=== PATIENT | male | born 1960 | race American Indian/Alaskan Native ===

== ENCOUNTER 2018-04-04 13:46 | Emergency (ER) | payer OTHER ==
[~2018-04-04] VITALS: Ht 177.8 cm; Wt 77.1 kg
[~2018-04-04 13:46] MED LIST: CVS DISPOSABLE399 ML; Colace100 MG PO; DIAZ5 PO; IBUPROFEN200 MG PO; KETO10 PO; LIDO5TP TD; Levaquin500 MG PO; Milk Of Ma400 MG/5 M; OXYC5 PO; TRAZ50 PO; [UNRECOGNIZED DRUG - REMARK]
== END 2018-04-04 15:34 | disposition home or self-care (01) ==
LOC: ER 13:46
DX: S06.0X0A Concussion without loss of consciousness, initial encounter (principal); S01.112A Laceration without foreign body of left eyelid and periocular area, initial encounter; F17.200 Nicotine dependence, unspecified, uncomplicated; W50.0XXA Accidental hit or strike by another person, initial encounter
CPT/HCPCS: 12011; 99283

== ENCOUNTER 2018-04-05 12:07 | Emergency (ER) | payer OTHER ==
[~2018-04-05] VITALS: Ht 177.8 cm; Wt 77.1 kg
== END 2018-04-05 13:58 | disposition home or self-care (01) ==
LOC: ER 12:07
DX: S00.12XA Contusion of left eyelid and periocular area, initial encounter (principal); S00.432A Contusion of left ear, initial encounter; S00.81XA Abrasion of other part of head, initial encounter; F17.200 Nicotine dependence, unspecified, uncomplicated; Y04.2XXA Assault by strike against or bumped into by another person, initial encounter
CPT/HCPCS: 70450; 99283-25

== ENCOUNTER 2019-02-13 17:33 | Emergency (ER) | payer OTHER ==
[~2019-02-13] VITALS: Ht 175.3 cm; Wt 70.3 kg
[~2019-02-13 17:33] MED LIST changes: +ERGO400 PO; +LISI20 PO
[2019-02-13] MEDS ORDERED: Lisinopril2.5 MG PO (17:52)
[2019-02-13] MEDS ORDERED: TRAZ100 PO (17:52)
[2019-02-13] MEDS ORDERED: BUPR150T2 PO (17:52)
[2019-02-13] MEDS ORDERED: Robaxin500 MG PO (19:05)
== END 2019-02-13 19:17 | disposition home or self-care (01) ==
LOC: ER 17:33
DX: M62.830 Muscle spasm of back (principal); Z79.899 Other long term (current) drug therapy; I10 Essential (primary) hypertension; F17.210 Nicotine dependence, cigarettes, uncomplicated
CPT/HCPCS: 20552; 96372-59; 99283-25; J1885

== ENCOUNTER 2021-02-24 06:21 | Emergency (ER) | payer OTHER ==
[~2021-02-24] VITALS: Ht 172.7 cm; Wt 79.4 kg
[~2021-02-24 06:21] MED LIST changes: +BUPR150T2 PO; +Lisinopril2.5 MG PO; +Robaxin500 MG PO; +TRAZ100 PO
[2021-02-24] MEDS ORDERED: SULTRIDS PO (08:28)
[2021-03-10] MEDS ORDERED: IBUP800 PO (17:57)
[2021-03-10] MEDS ORDERED: CEPH500 PO (17:57)
== END 2021-02-24 08:41 | disposition home or self-care (01) ==
LOC: ER 06:21
DX: L73.9 Follicular disorder, unspecified (principal); R60.0 Localized edema; I10 Essential (primary) hypertension; F17.210 Nicotine dependence, cigarettes, uncomplicated
CPT/HCPCS: 93971; 99283-25

== ENCOUNTER 2021-04-21 01:00 | Emergency (ER) | payer OTHER ==
[~2021-04-21] VITALS: Ht 175.3 cm; Wt 81.7 kg
[~2021-04-21 01:00] MED LIST changes: +CEPH500 PO; +IBUP800 PO; +SULTRIDS PO
[2021-04-21 01:19] LABS: BASOPHILS ABSOLUTE AUTO 0.04 K/mm3 (0.00-0.23); BASOPHILS PERCENT AUTO 1 % (0-2); EOSINOPHILS ABSOLUTE AUTO 0.09 K/mm3 (0.00-0.68); EOSINOPHILS PERCENT AUTO 1 % (0-6); Hematocrit 37.6 % (37.0-53.0); Hemoglobin 13.2 g/dL (13.5-17.5); IMMATURE GRAN PERCENT AUTO 1 % (0-1); LYMPHOCYTES ABSOLUTE AUTO 2.34 K/mm3 (0.84-5.20); LYMPHOCYTES PERCENT AUTO 31 % (21-46); MONOCYTES ABSOLUTE AUTO 0.56 K/mm3 (0.16-1.47); MONOCYTES PERCENT AUTO 7 % (4-13); Mean Corpuscular HGB 32.7 pg (26.0-34.0); Mean Corpuscular HGB Conc 35.1 g/dL (31.5-36.5); Mean Corpuscular Volume 93 fL (80-100); Mean Platelet Volume 8.6 fL (9.1-12.4); NEUTROPHILS ABSOLUTE AUTO 4.51 K/mm3 (1.96-9.15); NEUTROPHILS PERCENT AUTO 59 % (41-73); Platelet Count 279 K/mm3 (150-400); RDW Coefficient Variation 12.5 % (11.7-14.2); RDW Standard Deviation 42.9 fL (35.1-46.3); Red Blood Cell Count 4.04 M/mm3 (4.30-5.90); White Blood Cell Count 7.64 K/mm3 (4.00-11.30)
[2021-04-21 01:37] LABS: Ethanol (Alcohol), Blood, Med <3 mg/dL
[2021-04-21 01:38] LABS: Alanine Aminotransfer (ALT/SGP 27 U/L (12-78); Albumin, Blood 3.5 g/dL (3.4-5.0); Albumin/Globulin Ratio 0.9 (0.8-1.8); Alk Phos 89 U/L (50-136); Anion Gap 5 mmol/L (6-16); Aspartate Aminotrans (AST/SGOT 19 U/L (12-37); Bilirubin, Total 0.5 mg/dL (0.1-1.0); Blood Urea Nitrogen 17 mg/dL (8-24); Bun/Creatinine Ratio 16.7 (12.0-20.0); CO2, Blood 29 mmol/L (21-32); Calcium, Blood 9.2 mg/dL (8.5-10.1); Chloride, Blood 109 mmol/L (98-108); Creatinine, Blood 1.02 mg/dL (0.60-1.20); Globulin, Blood 3.8 g/dL (2.2-4.0); Glomerular Filtration Rate >60 (60-); Glucose, Blood 98 mg/dL (70-99); Potassium, Blood 3.8 mmol/L (3.5-5.5); Sodium, Blood 143 mmol/L (136-145); Total Protein, Blood 7.3 g/dL (6.4-8.2)
[2021-04-21 01:44] LABS: International Normalized Ratio 0.93; Prothrombin Time Results 10.1 Sec (9.7-11.5)
[2021-04-21 02:22] LABS: Troponin I <0.015 ng/mL (0.000-0.040)
[2021-04-21 02:28] LABS: Source, Urine Clean Catch
[2021-04-21 02:32] LABS: Appearance, Urine Clear (Clear); Bilirubin, Urine Neg (Neg); Blood, Urine 2+ (Neg); Color, Urine Yellow (P-Yellow); Glucose Qualitative, Urine Neg (Neg); Ketones, Urine 1+ (Neg); Leukocyte Esterase, Urine 1+ (Neg); Nitrite, Urine Neg (Neg); Protein, Urine Neg (Neg); Urobilinogen, Urine NORM (Normal)
[2021-04-21 02:38] LABS: Bacteria Mod /hpf; Red Blood Cells, Urine 0-2 /hpf (0-2); Squamous Epithelial Cells Not Seen /hpf (Few)
[2021-04-21 02:42] LABS: U Amphetamine Screen DETECTED; U Barbituate Screen Not Detected; U Benzodiazapine Screen Not Detected; U Buprenorphine Screen Not Detected; U Cannabinoids Screen Not Detected; U Cocaine Screen Not Detected; U Methadone Screen Not Detected; U Methamphetamine Screen DETECTED; U Opiates Screen Not Detected; U Oxycodone Screen Not Detected; U Phencyclidine Screen Not Detected; U Propoxyphene Screen Not Detected
[2021-04-21] MEDS ORDERED: Percocet 5-3251 EACH PO (03:09)
== END 2021-04-21 04:15 | disposition home or self-care (01) ==
LOC: ER 01:00 → SURS 01:13 → ER 01:13
PROVIDERS: Emergency Medicine
DX: S22.22XA Fracture of body of sternum, initial encounter for closed fracture (principal); V89.0XXA Person injured in unspecified motor-vehicle accident, nontraffic, initial encounter; F15.10 Other stimulant abuse, uncomplicated; I10 Essential (primary) hypertension; F17.210 Nicotine dependence, cigarettes, uncomplicated; M47.892 Other spondylosis, cervical region; K50.00 Crohn's disease of small intestine without complications
CPT/HCPCS: 36415; 70450; 71045; 71260; 72125; 74177; 80053; 81001; 83605; 83690; 84484; 85025; 85610; 86850; 86900; 86901; 87086; 93005; 93010; 96374-59; 96375-59; 96376-59; 99285-25; A9270; G0480; J1170; J1885; J3010; L0160; Q9967

== ENCOUNTER 2021-05-02 10:46 | Inpatient (IN) | payer OTHER ==
[~2021-05-02] VITALS: Ht 175.3 cm; Wt 53.3 kg
[~2021-05-02 10:46] MED LIST changes: +Percocet 5-3251 EACH PO
[2021-05-02 12:15] LABS: BASOPHILS ABSOLUTE AUTO 0.01 K/mm3 (0.00-0.23); BASOPHILS PERCENT AUTO 0 % (0-2); EOSINOPHILS PERCENT AUTO 0 % (0-6); Hematocrit 37.1 % (37.0-53.0); Hemoglobin 12.9 g/dL (13.5-17.5); IMMATURE GRAN ABSOLUTE AUTO 0.07 K/mm3 (0.00-0.10); IMMATURE GRAN PERCENT AUTO 1 % (0-1); LYMPHOCYTES ABSOLUTE AUTO 1.07 K/mm3 (0.84-5.20); LYMPHOCYTES PERCENT AUTO 13 % (21-46); MONOCYTES ABSOLUTE AUTO 0.58 K/mm3 (0.16-1.47); MONOCYTES PERCENT AUTO 7 % (4-13); Mean Corpuscular HGB 32.7 pg (26.0-34.0); Mean Corpuscular HGB Conc 34.8 g/dL (31.5-36.5); Mean Corpuscular Volume 94 fL (80-100); Mean Platelet Volume 8.5 fL (9.1-12.4); NEUTROPHILS ABSOLUTE AUTO 6.52 K/mm3 (1.96-9.15); NEUTROPHILS PERCENT AUTO 79 % (41-73); Platelet Count 357 K/mm3 (150-400); RDW Coefficient Variation 12.5 % (11.7-14.2); RDW Standard Deviation 43.6 fL (35.1-46.3); Red Blood Cell Count 3.95 M/mm3 (4.30-5.90); White Blood Cell Count 8.25 K/mm3 (4.00-11.30)
[2021-05-02 12:37] LABS: Alanine Aminotransfer (ALT/SGP 38 U/L (12-78); Albumin, Blood 2.2 g/dL (3.4-5.0); Albumin/Globulin Ratio 0.5 (0.8-1.8); Alk Phos 122 U/L (50-136); Anion Gap 6 mmol/L (6-16); Aspartate Aminotrans (AST/SGOT 52 U/L (12-37); Bilirubin, Total 0.2 mg/dL (0.1-1.0); Blood Urea Nitrogen 18 mg/dL (8-24); Bun/Creatinine Ratio 20.4 (12.0-20.0); CO2, Blood 27 mmol/L (21-32); Calcium, Blood 8.1 mg/dL (8.5-10.1); Chloride, Blood 103 mmol/L (98-108); Creatinine, Blood 0.88 mg/dL (0.60-1.20); Globulin, Blood 4.4 g/dL (2.2-4.0); Glomerular Filtration Rate >60 (60-); Glucose, Blood 122 mg/dL (70-99); Potassium, Blood 4.3 mmol/L (3.5-5.5); Sodium, Blood 136 mmol/L (136-145); Total Protein, Blood 6.6 g/dL (6.4-8.2)
[2021-05-02 13:09] LABS: SARS-Cov-2 (COVID-19) PCR, MMC POSITIVE (NEGATIVE)
--- NOTE | 2021-05-02 18:57 | NUR ---
SHIFT SUMMARY PT ADMITTED TO UNIT FROM ED AT 1825 THIS SHIFT. PT AAOX4, ABLE TO MAKE NEEDS KNOWN. PLEASANT AND COOPERATIVE TO CARE. NO C/O PAIN OR ANY DISCOMFORT UPON ASSESSMENT. PT ON 10 LPM O2 VIA OXYMIZER SATTING 93% PT REPORTS SOB W/ EXERTION. LS DIM T/O. BED AT LOWEST POSITION. CALL LIGHT WITHIN REACH.
--- NOTE | 2021-05-03 04:19 | NUR ---
Shift Summary Pt admitted for covid 19+. Pt is a full code. The plan is to decrease pt 02 needs. Pt c/o some pain to chest due to coughing. Medicated with prn. No other changes throughout this shift.
[2021-05-03 05:47] LABS: BASOPHILS PERCENT AUTO 0 % (0-2); EOSINOPHILS PERCENT AUTO 0 % (0-6); Hematocrit 36.8 % (37.0-53.0); Hemoglobin 12.4 g/dL (13.5-17.5); IMMATURE GRAN ABSOLUTE AUTO 0.02 K/mm3 (0.00-0.10); IMMATURE GRAN PERCENT AUTO 0 % (0-1); LYMPHOCYTES ABSOLUTE AUTO 0.71 K/mm3 (0.84-5.20); LYMPHOCYTES PERCENT AUTO 12 % (21-46); MONOCYTES ABSOLUTE AUTO 0.26 K/mm3 (0.16-1.47); MONOCYTES PERCENT AUTO 4 % (4-13); Mean Corpuscular HGB Conc 33.7 g/dL (31.5-36.5); Mean Corpuscular Volume 95 fL (80-100); Mean Platelet Volume 8.9 fL (9.1-12.4); NEUTROPHILS ABSOLUTE AUTO 5.14 K/mm3 (1.96-9.15); NEUTROPHILS PERCENT AUTO 84 % (41-73); Platelet Count 401 K/mm3 (150-400); RDW Coefficient Variation 12.6 % (11.7-14.2); Red Blood Cell Count 3.87 M/mm3 (4.30-5.90); White Blood Cell Count 6.13 K/mm3 (4.00-11.30)
[2021-05-03 06:07] LABS: Alanine Aminotransfer (ALT/SGP 35 U/L (12-78); Albumin/Globulin Ratio 0.5 (0.8-1.8); Alk Phos 107 U/L (50-136); Anion Gap 5 mmol/L (6-16); Aspartate Aminotrans (AST/SGOT 38 U/L (12-37); Bilirubin, Total 0.3 mg/dL (0.1-1.0); Blood Urea Nitrogen 17 mg/dL (8-24); Bun/Creatinine Ratio 25.3 (12.0-20.0); CO2, Blood 25 mmol/L (21-32); Calcium, Blood 8.1 mg/dL (8.5-10.1); Chloride, Blood 108 mmol/L (98-108); Creatinine, Blood 0.67 mg/dL (0.60-1.20); Globulin, Blood 4.4 g/dL (2.2-4.0); Glomerular Filtration Rate >60 (60-); Glucose, Blood 131 mg/dL (70-99); Potassium, Blood 4.7 mmol/L (3.5-5.5); Sodium, Blood 138 mmol/L (136-145); Total Protein, Blood 6.4 g/dL (6.4-8.2)
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
--- NOTE | 2021-05-04 04:58 | NUR ---
SHIFT SUMMARY PT ADMITTED FOR COVID 19+. PT IS A FULL CODE. THE PLAN FOR THIS PTIS DECREASED DEMANND FOR . PT C/O PAIN MEDICATED ONCE DURING THIS SHIFT.AAOX4.
--- NOTE | 2021-05-04 16:14 | NUR ---
SHIFT SUMMARY PT IS AAOX4, ABLE TO MAKE NEEDS KNOWN, PLEASANT AND COOPERATIVE TO CARE. PT MEDICATED FOR PAIN PER EMAR. NO C/O CP OR N&V. PT CONTINUES ON 10LPM O2 VIA OXYMIZER PT SATS 90-93%. PT REQUIRES SBA TO BATHROOM. NO ACUTE CHANGES NOTED TO PT THIS SHIFT. BED AT LOWEST POSITION. CALL LIGHT WITHIN REACH.
--- NOTE | 2021-05-05 18:25 | NUR ---
Alert and oreinted x2 with anxiety. On 12 L oxyximezer with SP02 at 93%. Concerned about possible PE due to worsening SOB and dyspnia , D-diner was ordered and the result was 14.14 relatively high , however CT pulmonary angiogram was done and result shows no evidence of PE. Vital signs are stable. One person assist with ADLs. Continue to monitor for S/S of PNA.
--- NOTE | 2021-05-06 06:50 | NUR ---
PATIENT KEPT REMOVING OXIMIZER AND DESATING. HE IS ALSO SHALLOW MOUTH BREATHER. I PLACED IN ON A NON REBREATHER MASK AT 15 LITERS. HE IS CURRENTLY SATING IN LOW 90S. NO OTHER ACUTE CHANGES NOTED OVERNIGHT.
--- NOTE | 2021-05-06 16:14 | NUR ---
SHIFT SUMMARY PATIENT DENIES PAIN AND NAUSEA. PATIENT VISIBLY SOB THIS MORNING. PATIENT WAS ON 15L NRB AND 15L OXIMIZER AT BEGINNING OF SHIFT. PATIENT DESATURATING TO 70S ANYTIME PATIENT DID ACTIVITY OR REMOVED MASK TO EAT OR TAKE MEDICATIONS. DR. GUO NOTIFIED. RT NOTIFIED. PATIENT PLACED ON AIRVO AT 55L AND 95 FIO2. PATIENT IS ALSO ON 10L NRB OVER THE AIRVO. PATIENT MAINTAINING SATURATIONS IN MID 90S AT REST. PATIENT IS VERY ANXIOUS AND RESTLESS. PATIENT REPORTED HAVING PANIC ATTACKS DURING SHIFT. DR. GUO NOTIFIED AND NEW ORDERS FOR 0.5-1MG OF ATIVAN IV Q6 PRN. PATIENT CALM AND SLEEPING AFTER ATIVAN. PATIENT UNABLE TO TOELRATE EATING. ENCOURAGED DRINKING ENSURE. GOT CONSENT FROM PATIENT TO TALK TO HIS MOM, CORINA. CALLED AND UPDATED HER.
--- NOTE | 2021-05-07 04:09 | NUR ---
APPAREL STOCK CHECKER SUMMARY PT SLEPT DECENT TONIGHT. PT IS IMPULSIVE AND GETS OUT GOT OF BED WITHOUT CALLING TO USE URINAL. WHENEVER PT GETS UP HE PULLS OFF AIRVO AND NRB MASK. PT IS ON 90% FIO2 SATTING IN THE MID TO HIGH 90'S. DEATS QUICK. EASILY IRRITABLE. BED ALARM ON, CALL LIGHT WITHN REACH, WILL CONITUE TO MONITOR.
[2021-05-07 04:50] LABS: BASOPHILS ABSOLUTE AUTO 0.01 K/mm3 (0.00-0.23); BASOPHILS PERCENT AUTO 0 % (0-2); EOSINOPHILS ABSOLUTE AUTO 0.05 K/mm3 (0.00-0.68); EOSINOPHILS PERCENT AUTO 1 % (0-6); Hematocrit 40.9 % (37.0-53.0); IMMATURE GRAN ABSOLUTE AUTO 0.09 K/mm3 (0.00-0.10); IMMATURE GRAN PERCENT AUTO 1 % (0-1); LYMPHOCYTES ABSOLUTE AUTO 1.02 K/mm3 (0.84-5.20); LYMPHOCYTES PERCENT AUTO 10 % (21-46); MONOCYTES ABSOLUTE AUTO 0.56 K/mm3 (0.16-1.47); MONOCYTES PERCENT AUTO 6 % (4-13); Mean Corpuscular HGB Conc 34.2 g/dL (31.5-36.5); Mean Corpuscular Volume 93 fL (80-100); Mean Platelet Volume 8.6 fL (9.1-12.4); NEUTROPHILS ABSOLUTE AUTO 8.36 K/mm3 (1.96-9.15); NEUTROPHILS PERCENT AUTO 83 % (41-73); Platelet Count 479 K/mm3 (150-400); RDW Coefficient Variation 12.5 % (11.7-14.2); RDW Standard Deviation 42.9 fL (35.1-46.3); Red Blood Cell Count 4.38 M/mm3 (4.30-5.90); White Blood Cell Count 10.09 K/mm3 (4.00-11.30)
[2021-05-07 05:25] LABS: Alanine Aminotransfer (ALT/SGP 64 U/L (12-78); Albumin, Blood 2.3 g/dL (3.4-5.0); Albumin/Globulin Ratio 0.5 (0.8-1.8); Alk Phos 112 U/L (50-136); Anion Gap 6 mmol/L (6-16); Aspartate Aminotrans (AST/SGOT 56 U/L (12-37); Bilirubin, Total 0.5 mg/dL (0.1-1.0); Blood Urea Nitrogen 21 mg/dL (8-24); Bun/Creatinine Ratio 27.9 (12.0-20.0); CO2, Blood 28 mmol/L (21-32); Calcium, Blood 8.8 mg/dL (8.5-10.1); Chloride, Blood 103 mmol/L (98-108); Creatinine, Blood 0.75 mg/dL (0.60-1.20); Glomerular Filtration Rate >60 (60-); Glucose, Blood 79 mg/dL (70-99); Sodium, Blood 137 mmol/L (136-145); Total Protein, Blood 7.3 g/dL (6.4-8.2)
--- NOTE | 2021-05-07 11:40 | NUR ---
TRANSFER PATIENT TRANSFERRED TO PCU 232. PATIENT PUT ON A BIPAP BY RT BEFORE TRANSFERRING. BELONGINGS SENT WITH PATIENT. BEDSIDE REPORT GIVEN TO MARLINE NAVARRO.
--- NOTE | 2021-05-07 13:00 | NUR ---
MD AT BEDSIDE AND REQUEST FOR PATIENT BE CHANGED TO CPAP, PRESSURE TO OBTAIN VOLUMES IN RANGE OF 400. INITIATED CPAP 8 FIO2 50%, VT 443, RR 26, VE 10.8. PATIENT TOLERATING WELL. WILL CONTINUE TO MONITOR AND WEAN TOLERATED.
--- NOTE | 2021-05-07 18:09 | NUR ---
APROX 1140: PT TRANSFERED FROM MEDICAL FLOOR FOR INCREASING OXYGEN DEMANDS. BROUGHT DOWN ON BIPAP. PT DISORIENTED, AGITATED, PULLING AT LINES, NOT ABLE TO REORIENT. PT NEEDING TO URINATE FREQUENTLY, DUBON CATHETER PLACED. CONTACTED, ORDERS RECEIVED FOR INCREASED PRNs AND PRECEDEX GTT. PT PLACED IN WRIST RESTRAINTS FOR SAFETY. PRECEDEX HAS BEEN TITRIATED UP HIGH 0.6 AND IS NOW DOWN TO 0.15 AT THIS TIME AFTER ADMINISTERING PRN ATIVAN FOR AGITATION WELL. PT APPEARS TO BE RESTING COMFORTABLY AT THIS TIME. BP AND HR HAVE FLUCUATED, SEE DOCUMENTED VITAL SIGNS.
--- NOTE | 2021-05-07 23:55 | NUR ---
PATIENT HAS BEEN AGITATED, UNCONSOLABLE PULLING AT TUBING, LINES, AND RESTRAINTS, WAS ABLE TO GET FEET ABOVE HEAD A PULL TUBING OUT OF CPAP MASKS ON MULTIPLE SUCCESSFUL ATTEMPTS, PRECEDEX IS RUNNING BUT UNABLE TO HAVE GOOD RESULTS, PATIENT HEART RATE DIPS BELOW 50 IF OVER 0.4 ON PRECEDEX, AT AROUND 2330 PATIENT WAS ABLE TO GET HIS ATIVAN 2MG IVP PRN Q4HRS SOME RELIEF AND RELAXED STOP PULLING, YELLING AND RESTING IN BED BUT ONLY LASTED FOR ABOUT 30 MINUTES. UNABLE TO KEEP PATIENT FROM KEEPING HIS MASK AND TUBES IN PLACE REGARDLESS OF 4 POINT RESTRAINTS, AND PRECEDEX WITH ATIVAN Q4 PRN. MD AWARE AND NO NEW ORDERS AT THIS TIME REGARDING ANXIETY, DID RECEIVE NEW ORDER FOR RECTAL TUBE, PATIENT HAVING LOOSE STOOL SINCE START OF SHIFT; ERIC CLEMENS X 2 BED CHANGES. CONDOM CATH IS IN PLACE AND SKIN INTACT. PATIENT HAS POOR PERFUSION, AND RESPIRATORY/MYSELF HAD DIFFICULTY GETTING A GOOD READ, PATIENT IS STILL WE ARE ABLE TO MONITOR, PATIENT IS UNABLE WITH ALL MEDICATIONS ON BOARD STAY STILL ENOUGH TO CONTINOUS MONITOR VIA RIO. WILL CONTINUE TO TRY TO GET PATIENT COMFORTABLE AND KEEP MASK ON.
[2021-05-08 04:38] LABS: BASOPHILS ABSOLUTE AUTO 0.01 K/mm3 (0.00-0.23); BASOPHILS PERCENT AUTO 0 % (0-2); EOSINOPHILS PERCENT AUTO 0 % (0-6); Hematocrit 35.7 % (37.0-53.0); Hemoglobin 12.5 g/dL (13.5-17.5); IMMATURE GRAN ABSOLUTE AUTO 0.06 K/mm3 (0.00-0.10); IMMATURE GRAN PERCENT AUTO 1 % (0-1); LYMPHOCYTES ABSOLUTE AUTO 0.57 K/mm3 (0.84-5.20); LYMPHOCYTES PERCENT AUTO 7 % (21-46); MONOCYTES ABSOLUTE AUTO 0.24 K/mm3 (0.16-1.47); MONOCYTES PERCENT AUTO 3 % (4-13); Mean Corpuscular HGB 31.9 pg (26.0-34.0); Mean Corpuscular Volume 91 fL (80-100); Mean Platelet Volume 8.5 fL (9.1-12.4); NEUTROPHILS ABSOLUTE AUTO 7.02 K/mm3 (1.96-9.15); NEUTROPHILS PERCENT AUTO 89 % (41-73); Platelet Count 566 K/mm3 (150-400); RDW Coefficient Variation 12.3 % (11.7-14.2); RDW Standard Deviation 41.1 fL (35.1-46.3); Red Blood Cell Count 3.92 M/mm3 (4.30-5.90)
[2021-05-08 05:00] LABS: Alanine Aminotransfer (ALT/SGP 56 U/L (12-78); Albumin, Blood 2.2 g/dL (3.4-5.0); Albumin/Globulin Ratio 0.5 (0.8-1.8); Alk Phos 100 U/L (50-136); Anion Gap 6 mmol/L (6-16); Aspartate Aminotrans (AST/SGOT 22 U/L (12-37); Bilirubin, Total 0.5 mg/dL (0.1-1.0); Blood Urea Nitrogen 39 mg/dL (8-24); Bun/Creatinine Ratio 51.3 (12.0-20.0); CO2, Blood 26 mmol/L (21-32); Calcium, Blood 8.4 mg/dL (8.5-10.1); Chloride, Blood 106 mmol/L (98-108); Creatinine, Blood 0.76 mg/dL (0.60-1.20); Globulin, Blood 4.8 g/dL (2.2-4.0); Glomerular Filtration Rate >60 (60-); Glucose, Blood 130 mg/dL (70-99); Potassium, Blood 4.1 mmol/L (3.5-5.5); Sodium, Blood 138 mmol/L (136-145)
--- NOTE | 2021-05-08 07:41 | NUR ---
ATTEMPTED TO WEAN PATIENT TO HFT, PATIENT DID NOT TOLERATE, SPO2 79% ON 50 LPM FIO2 50%, PATIENT BECAME VERUY AGITATED AFTER HFT PLACEMENT. PLACED BACK ON CPAP 8 FIO2 70%. SPO2 INCREASED TO 91%. RN MADE AWARE AND IS AT BEDSIDE.
--- NOTE | 2021-05-08 17:08 | NUR ---
SHIFT SUMMARY PT ORIENTED TO SELF. PT IS CONFUSED AND AGITATED STATING "I CAN'T BREATH." PT WILL LAY DOWN WHEN ASKED, BUT WILL TRY TO SIT BACK UP MOMENTS LATER. PT ON PRECEDEX GTT WITH HALDOL AND ATIVAN TO HELP PT RELAX. PT WAS ON 0.3 MCG/KG/ML FOR A GOOD PART OF THE DAY BUT HAS BEEN TITRATED TO 0.1 MCG/KG/ML TOWARDS END OF SHIFT. PT HAS CONDOM CATH DRAINING TO GRAVITY AND RECTAL TUBE ALSO DRAINING TO GRAVITY. PO MEDS NOT GIVEN DURING MORNING MED PASS DUE TO PT SATS DROPPING TO 70'S WITH MASK OFF, RT WAS ASSESSING AT THIS TIME WITH THIS RN. PT CPAP TITRATED TO 8L FIO2 40%. PT WOULD HAVE MOMENTS WHERE HE WOULD MOAN/SCREAM AND START PULLING AT HIS CONDOM CATHETER AND RECTAL TUBE. PT STILL IN 4 POINT RESTRAINTS WITH THE TUFF CUFF GARCIA AT TH3E COMPUTER IN ROOM.
--- NOTE | 2021-05-08 18:52 | NUR ---
UPDATE AT 1840, PT PULLED OUT RECTAL TUBE. NO BLOOD NOTED. PT WAS CLEANED AND NEW DE JESUS PAD IN PLACE. ATTENDS PLACED ON PT.
--- NOTE | 2021-05-09 01:48 | NUR ---
PATIENT AROUND 0100 HEART RATE DROPPED TO 43BPM, STOPPED PRECEDEX, NOTED AT 0130 PATIENT INFILTRATED HIS IV RUNNING TKO, REPLACED IV, PATIENT STARTED TO GET RESTLESS GAVE HALODOL 3MG IVP.
--- NOTE | 2021-05-09 03:53 | NUR ---
ASSUMED CARE OF PT
[2021-05-09 04:21] LABS: BASOPHILS ABSOLUTE AUTO 0.02 K/mm3 (0.00-0.23); BASOPHILS PERCENT AUTO 0 % (0-2); EOSINOPHILS PERCENT AUTO 0 % (0-6); Hematocrit 43.8 % (37.0-53.0); Hemoglobin 15.1 g/dL (13.5-17.5); IMMATURE GRAN ABSOLUTE AUTO 0.08 K/mm3 (0.00-0.10); IMMATURE GRAN PERCENT AUTO 1 % (0-1); LYMPHOCYTES ABSOLUTE AUTO 0.86 K/mm3 (0.84-5.20); LYMPHOCYTES PERCENT AUTO 9 % (21-46); MONOCYTES PERCENT AUTO 7 % (4-13); Mean Corpuscular HGB 31.9 pg (26.0-34.0); Mean Corpuscular HGB Conc 34.5 g/dL (31.5-36.5); Mean Corpuscular Volume 92 fL (80-100); Mean Platelet Volume 8.4 fL (9.1-12.4); NEUTROPHILS PERCENT AUTO 83 % (41-73); Platelet Count 686 K/mm3 (150-400); RDW Coefficient Variation 12.4 % (11.7-14.2); RDW Standard Deviation 42.5 fL (35.1-46.3); Red Blood Cell Count 4.74 M/mm3 (4.30-5.90); White Blood Cell Count 9.16 K/mm3 (4.00-11.30)
[2021-05-09 05:01] LABS: Alanine Aminotransfer (ALT/SGP 48 U/L (12-78); Albumin, Blood 2.5 g/dL (3.4-5.0); Albumin/Globulin Ratio 0.5 (0.8-1.8); Alk Phos 108 U/L (50-136); Anion Gap 9 mmol/L (6-16); Aspartate Aminotrans (AST/SGOT 20 U/L (12-37); Bilirubin, Total 0.5 mg/dL (0.1-1.0); Blood Urea Nitrogen 43 mg/dL (8-24); Bun/Creatinine Ratio 52.1 (12.0-20.0); CO2, Blood 24 mmol/L (21-32); Calcium, Blood 9.3 mg/dL (8.5-10.1); Chloride, Blood 109 mmol/L (98-108); Creatinine, Blood 0.83 mg/dL (0.60-1.20); Globulin, Blood 5.4 g/dL (2.2-4.0); Glomerular Filtration Rate >60 (60-); Glucose, Blood 120 mg/dL (70-99); Potassium, Blood 4.4 mmol/L (3.5-5.5); Sodium, Blood 142 mmol/L (136-145); Total Protein, Blood 7.9 g/dL (6.4-8.2)
--- NOTE | 2021-05-09 05:01 | NUR ---
AGITATION PT RESTLESS AND AGITATED IN BED, TURNING FROM SIDE TO SIDE, SITTING UP IN BED, REPEATS "TURN IT OFF" UNABLE TO DETERMINE WHAT PT WANTED TURNED OFF, PT REDIRECTABLE AT TIMES BUT CONTINUES TO PULL ON RESTRAINTS, REACHING FOR MASK/TUBES/LINES. PRECEDEX RESTARTED AT THIS TIME, SEE FLOWSHEET.
--- NOTE | 2021-05-09 05:40 | NUR ---
CPAP PULLED OFF TO PTS ROOM TO ADDRESS BIPAP ALARM, PT HAD GOTTEN MASK OFF OF FACE, O2 SATURATIONS MAINTAINED @ 83-85% ON RA, MASK PLACED BACK ON WITH QUICK RECOVERY OF O2 SATURATIONS. PT HAD PULLED CONDOM CATHETER, ATTENDS PLACED ON PT.
--- NOTE | 2021-05-09 06:22 | NUR ---
PT APPEARS TO BE RESTING COMFORTABLY, TOLERATING CPAP, O2 SATURATIONS> 90%. PRECEDEX TITRATED TO 0.2mcg/kg/hr, HR AND BP STABLE.
--- NOTE | 2021-05-09 18:36 | NUR ---
PT CONTINUES ON CPAP AND PRECEDEX GTT. ALTERNATING ATIVAN AND MORPHINE PRN SEEM TO WORK BEST TO HELP KEEP HIM CALM AND COMFORTABLE. PT REMAINS RESTRAINED FOR SAFETY. HE REMAINS AGITATED/CONFUSED, PULLING AT LINES AND TUBES, REMOVING CPAP MASK. PT'S MOTHER (ON MAUDE) CALLED FOR AN UPDATE, SPOKE WITH THIS RN. NO ACUTE EVENTS THROUGHOUT THE SHIFT.
--- NOTE | 2021-05-09 21:17 | NUR ---
ASSUMPTION OF CARE PT INITIALLY RESTING IN BED, TOLERATING CPAP, PRECEDEX INFUSING AT 0.2mcg/kg/hr. PT BECAME EXTREMETLY AGITATED WITH ATTENDS CHANGE AND ORAL CARE, MANEUVERED SELF TO BE ABLE TO REACH CPAP, PULLING AT MASK AND CURSING AT STAFF, NURSING STAFF ATTEMPTED TO KEEP MASK ON PT, PT RESISTANT AND GRABBING AT STAFF. PT NOT REDIRECTABLE OR FOLLOWING DIRECTIONS. PT MEDICATED WITH MORPHING AND ATIVAN, PRECEDEX TITRATED TO 0.4mcg/kg/hr. PTS AGITATION DECREASED AND MASK WAS PLACED BACK ON PT. O2 SATURATIONS> 90% ON CPAP 8 FiO2 35%. PER TRUCK BODY BUILDER, PT SINUS RHYTHM WITH HR 52. PT WITH INCONTINENCE, ATTENDS CHECKED AND CHANGED WITH NEEDED.
--- NOTE | 2021-05-10 07:11 | NUR ---
SHIFT SUMMARY PT RESTED THROUGH NIGHT WITH PERIODS OF AGITATION. ATTEMPTED TITRATING PRECEDEX GTT OFF AND PT BECAME EXTREMELY AGITATED, YELLING OUT, CURSING AT STAFF, PULLING AT CORDS/LINES, PULLED CONDOM CATHETER OFF, NOT REDIRECTABLE OR FOLLOWING DIRECTIONS. PRECEDEX GTT RESTARTED AND ZYPREXA ADMINISTERED. PT ON 1L PER OXYMIZER WITH O2 SATURATIONS 93-96%, TRIALED PT ON ROOM AIR AND PTS SATURATIONS MAINTAINED 85-88%. OXYGEN NEEDS INCREASE TO 10-12L WITH PERIODS OF AGITATION. PT REMAINS IN SINUS RHYTHM WITH HR 40'S-60'S, BP STABLE. ATTENDS IN PLACE. PT REPOSITIONS SELF IN BED.
--- NOTE | 2021-05-10 12:18 | NUR ---
REASSESSMENT PT REMAINS CONFUSED, REQUIRING PRECEDEX TO KEEP HIM FROM GETTING AGITATED AND DESATURATING, WELL PRN MORPHINE AND ATIVAN. WHEN PT STARTS TO GET AGITATED HIS OXYGEN SATS DROP TO THE MID 80S, BUT IMPROVE SOON HE RELAXES. HIS LUNGS ARE CLEAR BUT VERY DIM. SB IN THE UPPER 40S AND 50S. BP STABLE. GOOD BOWEL TONES. INCONTINENT OR URINE IN ATTENDS. CONTINUING TO MONITOR.
--- NOTE | 2021-05-10 16:24 | NUR ---
REASSESSMENT PT REMAINS ON PRECEDEX TO AIDE HIS ANXIETY. GAVE PT A BATH THIS AFTERNOON AND HE WAS ABLE TO VERBALIZE HE WAS COLD. TOOK HIM OUT OF HIS RESTRAINTS WHILE BATHING HIM AND PT WAS PICKING AT HIS HEART MONITOR, BUT AFTER HIS BATH WAS DOEN HE ROLLED FAR ONTO HIS SIDE AND FELL ASLEEP. TRIALING PT OUT OF RESTRAINTS TO SEE IF HE IS CALMER WHEN ABLE TO LAY ON HIS SIDE, BUT WILL HAVE TO PUT RESTRAINTS BACK ON IF HE STARTS PICKING AT HIS LINES. BED ALARM ON. LUNGS ARE CLEAR, BUT DIM. OXYGEN TURNED UP TO 3L/OXYMIZER THIS MORNING AND HAS STAYED THERE. SB WITH RATE IN THE UPPER 40S AND 50S. BP STABLE. INCONTINENT OF URINE IN ATTENDS. TRIED TO TITRATE PRECEDEX DOWN TODAY BUT PT BECAME RESTLESS AND DESATURATED WHEN IT WAS TURNED DOWN.
--- NOTE | 2021-05-11 06:49 | NUR ---
SHIFT SUMMARY ASSUMED CARE OF PT AT 1900. PT WAS ON PRECEDEX T/O THE NIGHT. PT WAS TITRATED DOWN TO 0.2 DUE TO DECREASED HR BUT BECAME VERY AGITATED AND WAS NOT DIRECTABLE. PT IS STABLE AT 0.5ML/HR, BUT WILL BECOME AGITATED WHEN HE URINATES. HEART SOUNDS REGULAR, LUNG SOUNDS ARE DIMINISHED. PT WAS ON 3L NC T/O THE NIGHT. PT WILL DESATURATE WITH MOVEMENT BUT WILL RETURN TO THE 90%. PT WAS INCONTIENT OF URINE. PT REMAINED IN JESUS AND WRIST RESTRAINTS T/O THE NIGHT. CALL LIGHT IN REACH, BED IN LOWEST POSTION, BED ALARM ON.
--- NOTE | 2021-05-11 12:15 | NUR ---
REASSESSMENT PT HAS BEEN RESTING IN BED. WAKES UP AND GETS AGITATED WHEN HIS ATTENDS IS WET IT SEEMS, BUT REQUIRES PRN EDICATION TO SETTLE BACK DOWN AFTER HIS ATTENDS IS CHANGED. PT IS VERY DIFFICULT TO DIRECT WHEN AWAKE, VERY RESTLESS, TRYING TO TURN FROM SIDE TO SIDE AND GRABBING ONTO ANYTHING HE CAN. ORIENTED ONLY TO HIMSELF. LUNGS ARE CLEAR, STILL ON 3L/NC. SB WITH RATE IN THE 50S, BP STABLE. PT HAS VERY SMALL SMEARS OF STOOL WITH ATTENDS CHANGE. TAKE OUT WAITER/WAITRESS SPOKE WITH PT'S MOTHER AND PROVIDED HER WITH UPDATE. CONTINUING TO MONITOR.
--- NOTE | 2021-05-11 17:58 | NUR ---
SHIFT SUMMARY PT CONTINUES TO REQUIRE PRECEDEX IN ORDER TO CONTROL HIS AGITATION RELATED TO HIS CONFUSION. PT WAS ABLE TO SAY HE WAS IN THE HOSPITAL THIS EVENING AND THAT HE CAME IN BECAUSE HE COULDN'T BREATHE, BUT HE DIDN'T HAVE ANY INSIGHT PAST THAT AND COULDN'T REMEMBER THE YEAR. HIS LUNGS ARE CLEAR BUT VERY DIM. WHEN HE IS AWAKE HE BREATHES RAPID AND SHALLOW SO HIS OXYGEN HAS TO BE TURNED UP TO 6L/NC, BUT WHEN HE RESTS IT CAN BE TURNED BACK DOWN TO 3L/NC. SR, BP STABLE. INCONTINENT IN HIS ATTENDS OF URINE. PASSING GAS. CONTINUING TO MONITOR.
--- NOTE | 2021-05-12 03:20 | NUR ---
PT AGIATED AT AROUND 0235 PT STARTED TO BECOME VERY AGITATED, PULLING AT RESTRAINTS, YELLING LOUDLY, AND ATTEMPTING TO GET OUT OF BED. PT WAS CHANGED FOR COMFORT AND ORAL CARE PERFORMED BUT PT CONTINUED TO STAY AGITATED. MORPHINE WAS GIVEN FOR PAIN, THIS HAD NO EFFECT. HOSPITALIST NOTIFIED AND SAID TO TURN UP SEDATION MEDICATION UP TO 1.[address] ALSO ORDERED ATIVAN FOR AGIATION BUT BY THE TIME THE ORDERED WERE VERIFIED AT 0315 BUT WAS STARTING TO CALM DOWN WITH THE PRECEDEX AT 1.4MG/HOUR. HR REMAINS STABLE AT 60. CALL LIGHT IN REACH, BED IN LOWEST POSTION.
[2021-05-12 04:04] LABS: Hematocrit 47.5 % (37.0-53.0); Mean Corpuscular HGB 31.6 pg (26.0-34.0); Mean Corpuscular HGB Conc 33.7 g/dL (31.5-36.5); Mean Corpuscular Volume 94 fL (80-100); Mean Platelet Volume 9.1 fL (9.1-12.4); Platelet Count 374 K/mm3 (150-400); RDW Coefficient Variation 12.6 % (11.7-14.2); RDW Standard Deviation 43.5 fL (35.1-46.3); Red Blood Cell Count 5.06 M/mm3 (4.30-5.90); White Blood Cell Count 10.07 K/mm3 (4.00-11.30)
[2021-05-12 04:25] LABS: Alanine Aminotransfer (ALT/SGP 62 U/L (12-78); Albumin, Blood 2.3 g/dL (3.4-5.0); Albumin/Globulin Ratio 0.5 (0.8-1.8); Alk Phos 91 U/L (50-136); Anion Gap 6 mmol/L (6-16); Aspartate Aminotrans (AST/SGOT 44 U/L (12-37); Bilirubin, Total 0.6 mg/dL (0.1-1.0); Blood Urea Nitrogen 42 mg/dL (8-24); Bun/Creatinine Ratio 54.9 (12.0-20.0); CO2, Blood 22 mmol/L (21-32); Calcium, Blood 7.7 mg/dL (8.5-10.1); Chloride, Blood 120 mmol/L (98-108); Creatinine, Blood 0.77 mg/dL (0.60-1.20); Globulin, Blood 4.9 g/dL (2.2-4.0); Glomerular Filtration Rate >60 (60-); Glucose, Blood 114 mg/dL (70-99); Potassium, Blood 5.8 mmol/L (3.5-5.5); Sodium, Blood 148 mmol/L (136-145); Total Protein, Blood 7.2 g/dL (6.4-8.2)
--- NOTE | 2021-05-12 06:34 | NUR ---
SHIFT SUMMARY ASSUMED CARE OF PT AT 1900. PT IS ON SEDATION MEDICATION. HEART SOUNDS REGULAR, LUNG SOUNDS ARE DIMINISHED, PT REMAINED ON 3L NC T/O THE NIGHT. PT SATURATIONS WOULD DECREASE WITH EXCERTION, FOR EXAMPLE, WHEN PT WAKES UP HE WILL WILL MOAN LOUDLY AND ATTEMPTS TO TAKE OFF RESTRAINTS, HIS SATURATIONS WILL DIP TO 80%. PT WAS MEDICATED WITH ATIVAN, ZYPREXA AND MORPHINE. INCREASED THE RATE OF PRECEDEX HELPED CALM THE PT MOST, SEE PREVIOUS NOTE. PT WAS INCONTIENT OF URINE. CALL LIGHT IN REACH, BED IN LOWEST POSTION.
--- NOTE | 2021-05-12 19:09 | NUR ---
PT TRANSFER PT WAS RESTLESS AND AGITATED DESPITE BEING MEDICATED WITH MORPHINE, ZYPREXA, AND PRECEDEX. PT WAS ABLE TO MANUEVEUR OUT SOFT RESTRAINTS ON NUMEROUS OCCASIONS. PT ALSO REMOVED TO IVS. REPORT WAS GIVEN TO NURSE ROOM PCU-[id number].
--- NOTE | 2021-05-12 19:13 | NUR ---
SHIFT SUMMARY: ASSUMED CARE FROM ABEBE RN AT APPROXIMATELY 1600. PT WAS IN WRIST RESTRAINTS AND JESUS WITH PRECEDEX GTT RUNNING. AND BED ALARM. THIS EVENING AT SHIFT CHANGE, PT HAD WORSENING AGITATION. NIGHT RN GIVING PT HALDOL FOR THIS. MULTIPLE STAFF AT BEDSIDE ATTEMPTING TO ASSIST PT WITH AGITATION
--- NOTE | 2021-05-12 21:39 | NUR ---
AGITATION HALDOL GIVEN, SEE PREVIOUS RN NOTE. PATIENT'S AGITATION PROGRESSING. PRECEDEX GTT TURNED UP TO 0.5. SEE FLOW SHEET. LITTLE TO NO CHANGE IN PATIENTS STATUS. AGITATION CONTINUED, PATIENT YELLING AT STAFF, TRYING TO SPIT AT STAFF, PULLING AT CORDS AND RESTRAINTS, TRYING TO GET OUT OF BED AND KICKING SIDE RAILS. PRECEDEX GTT UP TO 0.7. CORDS REPLACED AND PATIENT BACK ON MONITOR. PATIENT IS NOW RESTING QUIETLY. WARM BLANKET GIVEN FOR COMFORT.
--- NOTE | 2021-05-12 23:53 | NUR ---
REASSESSMENT PATIENT RESTING QUIETLY IN BED. JESUS/WRIST RESTRAINTS IN PLACE. PRECEDEX GTT REMAINS AT 0.7 MCG/KG/HR. PATIENT TOLERATING WELL. VITAL SIGNS STABLE.
--- NOTE | 2021-05-13 02:35 | NUR ---
REASSESSMENT PATIENT IS RESTING QUIETLY IN BED AT THIS TIME. PRECEDEX GTT TITRATED DOWN TO 0.5 MCG/KG/HR. JESUS AND TWICE TUFF CUFFS IN PLACE. PATIENT PLACED ON 1L NC TO MAINTAIN OXYGEN SATURATION ABOVE 90%.
--- NOTE | 2021-05-13 06:26 | NUR ---
SHIFT SUMMARY PATIENT RESTING QUIETLY THROUGH MAJORITY OF SHIFT. ONE EPISODE OF AGITATION DURING SHIFT CHANGE BUT NO FURTHER EPISODES. PRN MEDICATION GIVEN, SEE PREVIOUS NOTE. PRECEDEX GTT AT 0.4 MCG/KG/HR. OXYGEN SATURATIONS MAINTAINING ABOVE 90% ON 2L NC. DESTATS WITH EXERTION. HR HAS MAINTAINED MID 40S-50S THIS SHIFT. JESUS AND TUFF CUFF RESTRAINTS IN PLACE. CALL LIGHT IN REACH, WILL CONTUINUE TO MONITOR UNTIL REPORT GIVEN TO DAY SHIFT RN.
--- NOTE | 2021-05-13 15:19 | NUR ---
SO FAR THIS SHIFT, PT HAS DONE VERY WELL. HE IS ALERT AND ORIENTED X 3, COOPERATIVE WITH CARE, PLEASANT, FOLLOWS DIRECTIONS, ON 2L 02 VIA NC AND SITTING UP IN BED EATING HIS MEALS. NEOPRINE RESTRAINTS HAVE BEEN REMOVED THIS AM AND PT IS TOLERATING WELL. VEST RESTRAINT HAS REMAINED IN PLACE FOR SAFETY. DR HILL HAS BEEN IN TO SEE PT AND HIS PROGRESS.
--- NOTE | 2021-05-13 18:06 | NUR ---
PT HAS CONTINUED TO DO WELL THROUGHOUT THE DAY. HE IS COMPLETELY OUT OF RESTRAINTS AT THIS TIME. BED ALARM ON, CALL LIGHT IN REACH, BED IN LOWEST POSITION. PT VERBALIZES UNDERSTANDING TO CALL STAFF BEFORE GETTING OUT OF BED AND FOR ANY NEEDS. 02 NEEDS HAVE REMAINED STABLE.
[2021-05-14 03:47] LABS: Hematocrit 37.1 % (37.0-53.0); Hemoglobin 12.5 g/dL (13.5-17.5); Mean Corpuscular HGB 31.5 pg (26.0-34.0); Mean Corpuscular HGB Conc 33.7 g/dL (31.5-36.5); Mean Corpuscular Volume 94 fL (80-100); Mean Platelet Volume 8.8 fL (9.1-12.4); Platelet Count 478 K/mm3 (150-400); RDW Coefficient Variation 12.5 % (11.7-14.2); RDW Standard Deviation 43.6 fL (35.1-46.3); Red Blood Cell Count 3.97 M/mm3 (4.30-5.90); White Blood Cell Count 11.38 K/mm3 (4.00-11.30)
[2021-05-14 04:10] LABS: Alanine Aminotransfer (ALT/SGP 61 U/L (12-78); Albumin, Blood 2.2 g/dL (3.4-5.0); Albumin/Globulin Ratio 0.6 (0.8-1.8); Alk Phos 88 U/L (50-136); Anion Gap 3 mmol/L (6-16); Aspartate Aminotrans (AST/SGOT 33 U/L (12-37); Bilirubin, Total 0.4 mg/dL (0.1-1.0); Blood Urea Nitrogen 24 mg/dL (8-24); Bun/Creatinine Ratio 31.7 (12.0-20.0); CO2, Blood 25 mmol/L (21-32); Calcium, Blood 8.3 mg/dL (8.5-10.1); Chloride, Blood 113 mmol/L (98-108); Creatinine, Blood 0.76 mg/dL (0.60-1.20); Glomerular Filtration Rate >60 (60-); Glucose, Blood 95 mg/dL (70-99); Potassium, Blood 3.9 mmol/L (3.5-5.5); Sodium, Blood 141 mmol/L (136-145); Total Protein, Blood 6.2 g/dL (6.4-8.2)
--- NOTE | 2021-05-14 05:21 | NUR ---
SHIFT SUMMARY PATIENT IS RESTING IN BED. HE WAS JUST CLEANED UP AFTER AND ACCIDENT WHEN TRYING TO PEE IN THE URINAL. PATIENT IS MORE APOLOGETIC WHEN HE CAUSES A MESS. VITALS HAVE BEEN STABLE DURING THE SHIFT. PATIENT STARTED THE SHIFT WITHOUT OXYGEN BUT NEEDED IT WHEN HE WAS SLEEPING AT AROUND 0100. BED IS IN LOW POSITION. PATIENT IS ABLE TO GGET UP WITH ASSISTANCE. CALL LIGHT IS IN REACH AND PATIENT WAS EDUCATED ABOUT CALLING FOR HELP WHEN HE NEEDS TO USE THE BATHROOM. NO COMPLAINTS OF PAIN. BED ALARM IS ON. WILL CONTINUE TO MONITOR.
[2021-05-14 06:31] LABS: Magnesium, Blood 2.4 mg/dL (1.6-2.4)
--- NOTE | 2021-05-14 06:46 | NUR ---
DR MARCELO WAS CALLED TO INFORM HIM THE PAIENT HAD 7 BEATS OF VTACH AT NIGHT. THE DR ASKED IF PATIENT HAD LAB THIS MORNING INCLUDING MAGNESIUM BUT HE DID GET LABS EXCEPT MAGNESIUM. MAG WAS ADDED TO HIS MORNING LABS. PATIENT WAS ASYMMTOMATIC AND WAS SLEEPING. WILL CONTINUE TO MONITOR.
--- NOTE | 2021-05-14 11:28 | NUR ---
REPORT GIVEN TO MARLINE DOW. PT TRANSFERRED VIA WHEEL CHAIR TO ROOM 308 BED 1 BY [facility] [employer]. NO ACUTE NEEDS OR CONCERNS.
--- NOTE | 2021-05-14 17:54 | NUR ---
PT TRANSFERRED FROM PCU THIS SHIFT. HE IS ON 2 L O2 WITH AMBULATION. PT HAS HAD NO COMPLAINTS OF PAIN, SOB. SHOWERED SELF. CALL LIGHT WITHIN REACH
--- NOTE | 2021-05-15 05:12 | NUR ---
SHIFT SUMMARRY PATIENT AWAKE UNTIL ABOUT 1AM. COMPLAINS OF STERNUM PAIN, ELBOW AND HIP PAIN. PRN PERCOCET GIVEN ORDERED WITH GOOD EFFECT. NO MAJOR ACUTE MEDICAL CHANGES
[2021-05-15 05:13] LABS: BASOPHILS ABSOLUTE AUTO 0.02 K/mm3 (0.00-0.23); BASOPHILS PERCENT AUTO 0 % (0-2); EOSINOPHILS ABSOLUTE AUTO 0.08 K/mm3 (0.00-0.68); EOSINOPHILS PERCENT AUTO 1 % (0-6); Hematocrit 36.6 % (37.0-53.0); Hemoglobin 12.4 g/dL (13.5-17.5); IMMATURE GRAN ABSOLUTE AUTO 0.04 K/mm3 (0.00-0.10); IMMATURE GRAN PERCENT AUTO 0 % (0-1); LYMPHOCYTES ABSOLUTE AUTO 2.23 K/mm3 (0.84-5.20); LYMPHOCYTES PERCENT AUTO 24 % (21-46); MONOCYTES ABSOLUTE AUTO 0.86 K/mm3 (0.16-1.47); MONOCYTES PERCENT AUTO 9 % (4-13); Mean Corpuscular HGB Conc 33.9 g/dL (31.5-36.5); Mean Corpuscular Volume 94 fL (80-100); Mean Platelet Volume 9.3 fL (9.1-12.4); NEUTROPHILS ABSOLUTE AUTO 5.97 K/mm3 (1.96-9.15); NEUTROPHILS PERCENT AUTO 65 % (41-73); Platelet Count 395 K/mm3 (150-400); RDW Coefficient Variation 12.5 % (11.7-14.2); RDW Standard Deviation 43.1 fL (35.1-46.3); Red Blood Cell Count 3.88 M/mm3 (4.30-5.90)
[2021-05-15 05:47] LABS: Albumin, Blood 2.1 g/dL (3.4-5.0); Anion Gap 2 mmol/L (6-16); Blood Urea Nitrogen 17 mg/dL (8-24); Bun/Creatinine Ratio 25.1 (12.0-20.0); CO2, Blood 29 mmol/L (21-32); Calcium, Blood 8.4 mg/dL (8.5-10.1); Chloride, Blood 109 mmol/L (98-108); Creatinine, Blood 0.68 mg/dL (0.60-1.20); Glomerular Filtration Rate >60 (60-); Glucose, Blood 100 mg/dL (70-99); Phosphorus, Blood 2.3 mg/dL (2.5-4.9); Potassium, Blood 3.9 mmol/L (3.5-5.5); Sodium, Blood 140 mmol/L (136-145)
--- NOTE | 2021-05-15 15:02 | NUR ---
Palliative care note: Received an update on pt from bedside nurse. Pt's O2 requirements are down to 2 l/min. Has some SOB with exertion. Able to move around in his room. Plan is for pt to be discharged possibly tomorrow. PC to remain available for symptom managment as needed.
--- NOTE | 2021-05-15 15:10 | NUR ---
PATIENT STABLE AT THIS TIME A&OX4 ABLE TO VERBALIZE NEEDS WITH CLEAR SPEACH UP AD HAMIDA WITH STEADY GAIT REMAINS ON 02 @ 2L NC FOR INTERMITTENT SOB/ACKERMAN O2 SATURATION >92% LS REMAINS DIMINISHED BILAT NOWEVER NO DISTRESS NOTED ADEQUATE PO/MEAL INTAKE VOIDING CLEAR/YELLOW URINE SKIN W/D INTACT INTERMITTENT PAIN TO STERNUM/MID CHEST R/T PREVIOS FX. PAIN RELIEVED WITH PERCOCET PER PRN ORDERS PATIENT ANTICIPATING DISCHARGE TO HOME TOMORROW HAD PT THIS AFTERNOON TOLERATED WELL UPDATE PROVIDED TO PATIENT'S MOM GENE PATIENT IN BED AT THIS TIME ORDERED PIZZA WATCHING TV OFFERS NO COMPLAINTS/CONCERNS WILL CONTINUE TO MONITOR
--- NOTE | 2021-05-15 16:39 | NUR ---
HOME O2 EVAL AT REST: ROOM AIR- 93-94% WITH AMBULATION: ROOM AIR- 90-92%
--- NOTE | 2021-05-16 04:41 | NUR ---
SHIFT SUMMARRY PATIENT IS QUIET MOST OF THE NIGHT. COMPLAINED OF PAIN IN THE STERNUM, AND GERD PAIN. PRN OXYCODONE AND TUMS GIVEN WITH GOOD EFFECTS. NO ACUTE MEDICAL CHANGES THIS SHIFT
--- NOTE | 2021-05-16 08:10 | NUR ---
REVIEWED VS, SLEEPING, NO DISTRESS, NO GRIMACING
--- NOTE | 2021-05-16 08:35 | NUR ---
ROUNDING WITH NOW, PATIENT AT EDGE OF BED EATING BREAKFAST, REPORTS THE PERCOCET DID NOT WORK, WCTM
--- NOTE | 2021-05-16 11:04 | NUR ---
PT WORKED WITH PATIENT, SATS DROPPED TO 79% ON RA, RT IN NOW DOING ANOTHER OXYGEN EVALUATION
[2021-05-16] MEDS ORDERED: ACET325 PO (11:10)
[2021-05-16] MEDS ORDERED: BENZ100A PO (11:10)
[2021-05-16] MEDS ORDERED: Calcium Carbon500 MG PO (11:10)
[2021-05-16] MEDS ORDERED: ROBITUSSIN DM PO (11:11)
[2021-05-16] MEDS ORDERED: Percocet 5-3251 EACH PO (11:11)
[2021-05-16] MEDS ORDERED: FAMO20 PO (11:11)
[2021-05-16] MEDS ORDERED: SENN187 PO (11:12)
--- NOTE | 2021-05-16 11:37 | NUR ---
HOME 02 RE- EVAL BY RESPIRATORY THERAPIST ROHIT. "PT AMBULATED APROX 100FT. ROOM AIR+ 84%. PLACED ON OXYGEN AT 2 LPM- SATS 88%. RECOMMEND PT HAS HOME 02 AT 2 LPM TO KEEP SATS >88%"
--- NOTE | 2021-05-16 17:36 | NUR ---
PATIENT EXPRESSED HE IS UNHAPPY WITH HIS STAY AT [facility] PATIENT STATES "I CANT BELIEVE THEY LOST MY DENTURES THIS IS HORRIBLE, THOSE ARE EXPENSIVE", EDUCATED PATIENT THAT ALL THE ROOMS HE HAD BEEN IN WERE CHECKED AND THAT THE PATIENT RING PACKER WILL CONTACT HIM ON WEDNESDAY. "I SAT FOR 45 MINUTES BEFORE ANYONE CAME WITH THE BATHROOM FLOODED THE WHOLE ROOM" THIS RN SLICK REPORTED TO PATIENT "I WAS NOT THERE THOSE DAYS AND I CAN ONLY TAKE CARE OF TODAY," RELAYED TO ANSLEY HORAN PATIENT FORGETFUL OF INTERACTION WITH STAFF, INTERVENTION, AND SAFETY PRECAUTIONS, UNREASONABLE AND WILL NOT LISTEN TO EDUCATION OF WHY INTERVENTIONS ARE DONE.
--- NOTE | 2021-05-16 18:10 | NUR ---
patient discharged home via wheel chair
== END 2021-05-16 18:03 | disposition home or self-care (01) | DRG 177 ==
LOC: ER 10:46 → MEDS 14:50 → ERHOLD 14:50 → PCU 14:50 → MEDS 18:16 → SURS 05-07 11:24 → PCU 05-12 16:41 → MEDS 05-14 11:20 → ENPENDDIS 05-16 10:35 → MEDS 05-16 18:03
PROVIDERS: Emergency Medicine; Family Medicine; Internal Medicine; Nurse Practitioner Acute Care; ADMIT Internal Medicine
PROC: 8E0ZXY6 Isolation (ICD-10-PCS; principal; 2021-05-02)
PROC: 3E0333Z Introduction of Anti-inflammatory into Peripheral Vein, Percutaneous Approach (ICD-10-PCS; 2021-05-02)
PROC: 5A09457 Assistance with Respiratory Ventilation, 24-96 Consecutive Hours, Continuous Positive Airway Pressure (ICD-10-PCS; 2021-05-02)
PROC: XW033E5 Introduction of Remdesivir Anti-infective into Peripheral Vein, Percutaneous Approach, New Technology Group 5 (ICD-10-PCS; 2021-05-06)
DX: U07.1 COVID-19 (principal); J12.82 Pneumonia due to coronavirus disease 2019; J96.01 Acute respiratory failure with hypoxia; G92 Toxic encephalopathy; D64.9 Anemia, unspecified; T38.0X5A Adverse effect of glucocorticoids and synthetic analogues, initial encounter; Z78.1 Physical restraint status; D72.829 Elevated white blood cell count, unspecified; I10 Essential (primary) hypertension; S22.20XD Unspecified fracture of sternum, subsequent encounter for fracture with routine healing; F15.10 Other stimulant abuse, uncomplicated; S22.49XD Multiple fractures of ribs, unspecified side, subsequent encounter for fracture with routine healing; K21.9 Gastro-esophageal reflux disease without esophagitis; F17.210 Nicotine dependence, cigarettes, uncomplicated; Z98.890 Other specified postprocedural states
CPT/HCPCS: 36415; 71045; 71260; 80053; 80069; 82947; 83605; 83735; 83880; 85025; 85027; 85379; 86140; 87040; 94660; 94762; 96374; 96375; 97110; 97116; 97162; 97530; 99285-25; A9270; J1100; J1630; J1650; J1885; J1940; J2060; J2270; J2405; J7030; J7040; J7050; Q9967; U0004

== ENCOUNTER 2021-05-23 11:18 | Emergency (ER) | payer OTHER ==
[~2021-05-23] VITALS: Ht 175.3 cm; Wt 59.0 kg
[~2021-05-23 11:18] MED LIST changes: +ACET325 PO; +BENZ100A PO; +Calcium Carbon500 MG PO; +FAMO20 PO; +ROBITUSSIN DM PO; +SENN187 PO
[2021-05-23] MEDS ORDERED: Norco 5-325 Ta1 EACH PO (13:55)
== END 2021-05-23 14:07 | disposition home or self-care (01) ==
LOC: ER 11:18
DX: U07.1 COVID-19 (principal); S22.20XD Unspecified fracture of sternum, subsequent encounter for fracture with routine healing; I10 Essential (primary) hypertension; K21.9 Gastro-esophageal reflux disease without esophagitis; F17.210 Nicotine dependence, cigarettes, uncomplicated; Z88.2 Allergy status to sulfonamides; Z79.899 Other long term (current) drug therapy
CPT/HCPCS: 71045; 99284-25; A9270

== ENCOUNTER 2021-05-25 15:20 | Inpatient (IN) | payer OTHER ==
[~2021-05-25] VITALS: Ht 175.3 cm; Wt 62.6 kg
[~2021-05-25 15:20] MED LIST changes: +Norco 5-325 Ta1 EACH PO
[2021-05-25 15:48] LABS: BASOPHILS ABSOLUTE AUTO 0.04 K/mm3 (0.00-0.23); BASOPHILS PERCENT AUTO 0 % (0-2); EOSINOPHILS PERCENT AUTO 2 % (0-6); Hematocrit 31.2 % (37.0-53.0); Hemoglobin 10.4 g/dL (13.5-17.5); IMMATURE GRAN ABSOLUTE AUTO 0.08 K/mm3 (0.00-0.10); IMMATURE GRAN PERCENT AUTO 1 % (0-1); LYMPHOCYTES ABSOLUTE AUTO 2.25 K/mm3 (0.84-5.20); LYMPHOCYTES PERCENT AUTO 16 % (21-46); MONOCYTES ABSOLUTE AUTO 1.47 K/mm3 (0.16-1.47); MONOCYTES PERCENT AUTO 11 % (4-13); Mean Corpuscular HGB 31.7 pg (26.0-34.0); Mean Corpuscular HGB Conc 33.3 g/dL (31.5-36.5); Mean Corpuscular Volume 95 fL (80-100); Mean Platelet Volume 9.1 fL (9.1-12.4); NEUTROPHILS ABSOLUTE AUTO 9.66 K/mm3 (1.96-9.15); NEUTROPHILS PERCENT AUTO 70 % (41-73); Platelet Count 358 K/mm3 (150-400); RDW Coefficient Variation 13.3 % (11.7-14.2); RDW Standard Deviation 46.5 fL (35.1-46.3); Red Blood Cell Count 3.28 M/mm3 (4.30-5.90)
[2021-05-25 16:05] LABS: Anion Gap 7 mmol/L (6-16); Blood Urea Nitrogen 16 mg/dL (8-24); Bun/Creatinine Ratio 23.2 (12.0-20.0); CO2, Blood 24 mmol/L (21-32); Calcium, Blood 8.8 mg/dL (8.5-10.1); Chloride, Blood 109 mmol/L (98-108); Creatinine, Blood 0.69 mg/dL (0.60-1.20); Glomerular Filtration Rate >60 (60-); Glucose, Blood 141 mg/dL (70-99); Potassium, Blood 4.7 mmol/L (3.5-5.5); Sodium, Blood 140 mmol/L (136-145); Troponin I 0.366 ng/mL (0.000-0.040)
[2021-05-25 16:10] LABS: Base Excess Venous -1.3 mmol/L; Bicarbonate Venous 22.3 mmol/L (24.0-30.0); PCO2 Venous 57.9 mmHg (38-42); PO2 Venous 45.7 mmHg (38-42); pH Blood Venous 7.25 (7.34-7.37)
[2021-05-25 18:23] LABS: Percent Saturation 20.9 % (20.0-50.0)
--- NOTE | 2021-05-26 07:07 | NUR ---
SHIFT SUMMARY NEW ADMIT FOR RESPIRATORY FAILURE. PT A/OX4. ON TELE ST IN THE 100'S-110'S. DOES GET TEND TO GET ANXIOUS BUT WITH RE-DIRECTING CAN CALM DOWN. PT ON AIRVO 45% FIO2 MAINTAING O2 ABOVE 92%. DOES DESAT WITH EXERTION. PT AWARE HE IS ON BEDREST. USING URINAL AT BEDSIDE; YELLOW CLEAR URINE. ABLE TO CALL APPROPRIATELY. DID STATE HE HAS CHRONIC BACK PAIN AND DID GET PRN TYLENOL AND ICE PACK WHICH PT SAID IT HELPED. ON FULL LIQUID DIET WITH GREAT PO INTAKE. STABLE AT BEDSIDE. VSS. WILL CONT. TO MONITOR. LABS AND TROPONING TRENDING DOWN, CHARGE NURSE WAS MADE AWARE.
[2021-05-26 07:59] LABS: BASOPHILS ABSOLUTE AUTO 0.02 K/mm3 (0.00-0.23); BASOPHILS PERCENT AUTO 0 % (0-2); EOSINOPHILS PERCENT AUTO 0 % (0-6); Hematocrit 32.7 % (37.0-53.0); Hemoglobin 10.6 g/dL (13.5-17.5); IMMATURE GRAN PERCENT AUTO 1 % (0-1); LYMPHOCYTES ABSOLUTE AUTO 1.38 K/mm3 (0.84-5.20); LYMPHOCYTES PERCENT AUTO 10 % (21-46); MONOCYTES ABSOLUTE AUTO 0.72 K/mm3 (0.16-1.47); MONOCYTES PERCENT AUTO 5 % (4-13); Mean Corpuscular HGB 31.2 pg (26.0-34.0); Mean Corpuscular HGB Conc 32.4 g/dL (31.5-36.5); Mean Corpuscular Volume 96 fL (80-100); Mean Platelet Volume 9.1 fL (9.1-12.4); NEUTROPHILS ABSOLUTE AUTO 11.29 K/mm3 (1.96-9.15); NEUTROPHILS PERCENT AUTO 84 % (41-73); Platelet Count 442 K/mm3 (150-400); RDW Coefficient Variation 13.3 % (11.7-14.2); RDW Standard Deviation 47.3 fL (35.1-46.3); White Blood Cell Count 13.51 K/mm3 (4.00-11.30)
[2021-05-26 08:23] LABS: Alanine Aminotransfer (ALT/SGP 31 U/L (12-78); Albumin, Blood 1.9 g/dL (3.4-5.0); Albumin/Globulin Ratio 0.3 (0.8-1.8); Alk Phos 145 U/L (50-136); Anion Gap 6 mmol/L (6-16); Aspartate Aminotrans (AST/SGOT 16 U/L (12-37); Bilirubin, Total 0.2 mg/dL (0.1-1.0); Blood Urea Nitrogen 15 mg/dL (8-24); Bun/Creatinine Ratio 25.2 (12.0-20.0); CO2, Blood 25 mmol/L (21-32); Calcium, Blood 8.5 mg/dL (8.5-10.1); Chloride, Blood 107 mmol/L (98-108); Globulin, Blood 5.5 g/dL (2.2-4.0); Glomerular Filtration Rate >60 (60-); Glucose, Blood 154 mg/dL (70-99); Potassium, Blood 4.5 mmol/L (3.5-5.5); Sodium, Blood 138 mmol/L (136-145); Total Protein, Blood 7.4 g/dL (6.4-8.2); Troponin I 0.138 ng/mL (0.000-0.040)
[2021-05-26 09:48] LABS: U Amphetamine Screen Not Detected; U Barbituate Screen Not Detected; U Benzodiazapine Screen Not Detected; U Buprenorphine Screen Not Detected; U Cannabinoids Screen Not Detected; U Cocaine Screen Not Detected; U Methadone Screen Not Detected; U Methamphetamine Screen Not Detected; U Opiates Screen DETECTED; U Oxycodone Screen Not Detected; U Phencyclidine Screen Not Detected; U Propoxyphene Screen Not Detected
--- NOTE | 2021-05-26 18:14 | NUR ---
END OF SHIFT SUMMARY: PATIENT IS ON NC 4L, PULMONOLOGY SEEN TODAY FOR ABN CT WHICH SHOWED A 8.6 X 5.1 X 3.5 GAS AND FLUID SEEN ON MEDIAL ASPECT OF LEFT LOWER LOBE. PATIENT IS ANXIOUS AT TIMES, DENIES ANY REPOSITIONING. DENIES CHEST PAIN, ST 100'S - 110'S DIET HAS BEEN ADVANCING TOLERATED. NO BM ON THIS SHIFT GOOD OUTPUT IN URINAL AT BEDSIDE. PATINET LARGEST CONCERN IS PAIN MANAGEMENT. MEDICATED PER EMR AND PROVIDER AWARE.
--- NOTE | 2021-05-27 07:11 | NUR ---
SHIFT SUMMARY PATIENT IS RESTING IN BED COMFORTABLY. BED IS IN LOW POSTION. CALL LIGHT IS IN REACH. VITALS HAVE BEEN STABLE ALL NIGHT. THE PATIENT COMPLAINED OF PAIN SEE EMAR. THE PATIENT GET VERY ANXIOUS AT TIMES BUT ABLE TO CALM BE CALMED DOWN. NO ACUTE CHANGES AT NIGHT. THE PATIENT IS CURRENTLY ON 3L NC SATURATING ABOVE 90%. OCCASIONALLY HAS A PRODUCTIVE COUGH. WILL CONTINUE TO MONITOR. REPORT GIVEN TO DAY SHIFT RN.
--- NOTE | 2021-05-27 07:24 | NUR ---
[place] of Care Pt is awake and alert watching TV in bed. Lab just nikia his morning labs as per report he was sleeping earlier. Pt continues on 3 LPM via nasal canula and has no s/s of resp distress. He has his call light in reach and is able to make his needs known.
[2021-05-27 07:34] LABS: Base Excess Venous 2.9 mmol/L; Bicarbonate Venous 26.5 mmol/L (24.0-30.0); PCO2 Venous 42 mmHg (38-42); pH Blood Venous 7.42 (7.34-7.37)
[2021-05-27 07:35] LABS: PO2 Venous 56 mmHg (38-42)
[2021-05-27 07:35] LABS: BASOPHILS ABSOLUTE AUTO 0.02 K/mm3 (0.00-0.23); BASOPHILS PERCENT AUTO 0 % (0-2); EOSINOPHILS PERCENT AUTO 0 % (0-6); Hematocrit 31.3 % (37.0-53.0); Hemoglobin 10.4 g/dL (13.5-17.5); IMMATURE GRAN ABSOLUTE AUTO 0.13 K/mm3 (0.00-0.10); IMMATURE GRAN PERCENT AUTO 1 % (0-1); LYMPHOCYTES ABSOLUTE AUTO 2.11 K/mm3 (0.84-5.20); LYMPHOCYTES PERCENT AUTO 14 % (21-46); MONOCYTES ABSOLUTE AUTO 1.03 K/mm3 (0.16-1.47); MONOCYTES PERCENT AUTO 7 % (4-13); Mean Corpuscular HGB 31.5 pg (26.0-34.0); Mean Corpuscular HGB Conc 33.2 g/dL (31.5-36.5); Mean Corpuscular Volume 95 fL (80-100); Mean Platelet Volume 8.5 fL (9.1-12.4); NEUTROPHILS ABSOLUTE AUTO 11.88 K/mm3 (1.96-9.15); NEUTROPHILS PERCENT AUTO 78 % (41-73); Platelet Count 533 K/mm3 (150-400); RDW Coefficient Variation 13.5 % (11.7-14.2); RDW Standard Deviation 46.7 fL (35.1-46.3); White Blood Cell Count 15.17 K/mm3 (4.00-11.30)
--- NOTE | 2021-05-27 13:14 | NUR ---
Summary of Care Pt is a/o. He reports chroninc pain and this was discussed and his meds were adjusted as reflected on the EMAR. He has been napping on and off throughout the day and watching TV. He continues on IV ABO as ordered. He is tolerating a full liquid diet. The pt is irritable but cooperative with his care. He is using the urinal at the bedside. He is able to make his needs known and calls for help when needed.
--- NOTE | 2021-05-27 14:51 | NUR ---
ASSUMED CARE PT ALERT AND ORIENTED. VS STABLE. HR SINUS TACH 110-120. BP STABLE. O2 SATS >90% ON 5L NC. LS DIM THROUGHOUT. FREQUENT DRY COUGH NOTED. PT ABLE TO MOVE HIMSELF IN BED INDEPENDENTLY. PT ABLE TO USE THE URINAL AT BEDSIDE TO VOID. PT PROVIDED WITH BED BATH WITH MIMIMAL ASSITANCE. PT DOES DESATURATE WITH ACTIVITY, BUT RECOVERS QUICKLY. WILL CONTINUE TO MONITOR CLOSELY.
--- NOTE | 2021-05-27 17:19 | NUR ---
UPDATE PT REMAINS ALERT AND ORIENTED. PT ANXIOUS AT TIMES. O2 SATS REMAIN ABOVE 90% ON 5L NC. STATUS CHANGED TO MEDICAL AND TELEMETRY DISCONTINUED. PT DENIES ANY PAIN AT THIS TIME. WILL CONTINUE TO MONITOR CLOSELY AND REPORT TO ONCOMING RN.
--- NOTE | 2021-05-28 05:18 | NUR ---
SHIFT SUMMARY PATIENT IS RESTING IN BED COMFORTABLY. BED IS IN LOW POSITION. CALL LIGHT IS IN REACH. VITALS WERE STABLE EXCEPT OXYGEN SATURATION. PATIENT GOT ANXIOUS DURING THE NIGHT AND HIS OXYGEN DEMAND INCREASED FROM A NASAL CANNUAL TO OXYMIZER DUE TO HIS SATRATIONS HANGING IN THE HIGH 70S. PATIENT IS DOING WELL ON THE OXYIMIZER SATURATING ABOVE 95%. PATIENT COMPLAINED OF PAIN SEE EMAR FOR INTERVENTION. PATIENT HAS PRODUCTIVE COUGH. GOOD URINE OUTPUT DURING THE SHIFT. WILL CONTINUE TO MONITOR. REPORT WILL BE GIVEN TO ONCOMING RN.
--- NOTE | 2021-05-28 08:20 | NUR ---
CARE ASSUMPTION PATIENT A/OX4. PATIENT IS RESTING IN BED COMFORTABLY. PATIENT REPORTS PAIN AT 7 IN UPPER EXTREMITIES. PATIENT RECEIVE PAIN MEDICATION PER EMAR. VSS. SPO2 >90% ON OXYMIZER. PATIENT HAS A PRODUCTIVE COUGH, BLOOD TINGED SPUTUM AND CLEAR SPUTUM. PATIENT HAS EXCERTIONAL DYSPNEA, BUT RECOVERS QUICKLY. BED IN LOWEST POSITION AND CALL LIGHT WITHIN REACH. WILL CONTINEU TO MONITOR AND PROVIDE CARE.
--- NOTE | 2021-05-28 14:36 | NUR ---
PATIENT TRANSFERRED TO [facility], REPORT FROM ROHITH HORAN, ALERT AND ORIENTED X4, OXYMIZER AT 10 LITERS, PATIENT TOLERATED TRANSFER FROM W/C TO BED WITH EASE, MINIMAL SOB, ROOM [facility]LY [facility], LATER [facility], CALL LIGHT WITH IN REACH
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
--- NOTE | 2021-05-30 04:37 | NUR ---
Pt AAOx3, Pt on 5L O2 via NC as well as uses oximizer. Pt uses urinal without difficulty, calls appropriatey, and has a PIV that is SL. Pt is a 1PA to BSC. Pt works with pt. Continue POC.
[2021-05-30 04:56] LABS: Hematocrit 30.1 % (37.0-53.0); Hemoglobin 10.1 g/dL (13.5-17.5); Mean Corpuscular HGB 31.5 pg (26.0-34.0); Mean Corpuscular HGB Conc 33.6 g/dL (31.5-36.5); Mean Corpuscular Volume 94 fL (80-100); Mean Platelet Volume 8.1 fL (9.1-12.4); Platelet Count 788 K/mm3 (150-400); RDW Coefficient Variation 13.2 % (11.7-14.2); RDW Standard Deviation 45.1 fL (35.1-46.3); Red Blood Cell Count 3.21 M/mm3 (4.30-5.90); White Blood Cell Count 12.81 K/mm3 (4.00-11.30)
[2021-05-30 05:38] LABS: Anion Gap 7 mmol/L (6-16); Blood Urea Nitrogen 21 mg/dL (8-24); Bun/Creatinine Ratio 34.7 (12.0-20.0); CO2, Blood 29 mmol/L (21-32); Calcium, Blood 8.5 mg/dL (8.5-10.1); Chloride, Blood 101 mmol/L (98-108); Creatinine, Blood 0.61 mg/dL (0.60-1.20); Glomerular Filtration Rate >60 (60-); Glucose, Blood 104 mg/dL (70-99); Sodium, Blood 137 mmol/L (136-145)
--- NOTE | 2021-05-30 18:37 | NUR ---
TRANSFER NOTE PATIENT TRANSFERRED VIA WHEELCHAIR TO CT SCAN USING NONREBREATHER AT 25L BY CT TRANSPORTER. PATIENT WILL TRANSPORT TO PCU [address] REPORT GIVEN TO ROHITH HORAN BY PHONE.
[2021-05-31 03:49] LABS: BASOPHILS ABSOLUTE AUTO 0.03 K/mm3 (0.00-0.23); BASOPHILS PERCENT AUTO 0 % (0-2); EOSINOPHILS PERCENT AUTO 2 % (0-6); Hematocrit 25.7 % (37.0-53.0); Hemoglobin 8.6 g/dL (13.5-17.5); IMMATURE GRAN ABSOLUTE AUTO 0.48 K/mm3 (0.00-0.10); IMMATURE GRAN PERCENT AUTO 3 % (0-1); LYMPHOCYTES ABSOLUTE AUTO 3.09 K/mm3 (0.84-5.20); LYMPHOCYTES PERCENT AUTO 21 % (21-46); MONOCYTES PERCENT AUTO 10 % (4-13); Mean Corpuscular HGB 31.7 pg (26.0-34.0); Mean Corpuscular HGB Conc 33.5 g/dL (31.5-36.5); Mean Corpuscular Volume 95 fL (80-100); Mean Platelet Volume 8.3 fL (9.1-12.4); NEUTROPHILS ABSOLUTE AUTO 9.41 K/mm3 (1.96-9.15); NEUTROPHILS PERCENT AUTO 64 % (41-73); Platelet Count 764 K/mm3 (150-400); RDW Coefficient Variation 13.3 % (11.7-14.2); RDW Standard Deviation 45.8 fL (35.1-46.3); Red Blood Cell Count 2.71 M/mm3 (4.30-5.90); White Blood Cell Count 14.71 K/mm3 (4.00-11.30)
[2021-05-31 04:11] LABS: Alanine Aminotransfer (ALT/SGP 45 U/L (12-78); Albumin, Blood 1.7 g/dL (3.4-5.0); Albumin/Globulin Ratio 0.4 (0.8-1.8); Alk Phos 117 U/L (50-136); Anion Gap 6 mmol/L (6-16); Aspartate Aminotrans (AST/SGOT 20 U/L (12-37); Bilirubin, Total 0.3 mg/dL (0.1-1.0); Blood Urea Nitrogen 23 mg/dL (8-24); Bun/Creatinine Ratio 39.6 (12.0-20.0); CO2, Blood 29 mmol/L (21-32); Calcium, Blood 8.2 mg/dL (8.5-10.1); Chloride, Blood 102 mmol/L (98-108); Creatinine, Blood 0.58 mg/dL (0.60-1.20); Globulin, Blood 4.4 g/dL (2.2-4.0); Glomerular Filtration Rate >60 (60-); Glucose, Blood 101 mg/dL (70-99); Sodium, Blood 137 mmol/L (136-145); Total Protein, Blood 6.1 g/dL (6.4-8.2)
--- NOTE | 2021-05-31 06:42 | NUR ---
SHIFT SUMMARY PATIENT IS AN ANXIOUS MAN WHO IS A&OX4, FOLLOWING COMMANDS WITH GEN WEAKNESS. NOT COMPLIANT WITH CARE AT TIMES AND TAKES HIS O2 OFF OFTEN IT BOTHERS HIM. PRN ATARAX ADDED TO TRY TO HELP WITH ANXIETY. TACHYPENIC IN THE 20'S. ACKERMAN WITH VERY LITTLE ACTIVITY AND TAKES SEVERAL MINUTES TO FULLY RECOVER. CURRENTLY ON AIRVO 35L, 75% WITH A LOT OF ADJUSTMENTS MADE THROUGHOUT SHIFT. INCREASED FIO2 WITH ACTIVITY. DOES NOT LIKE PRESSURE OF AIRVO AND STATED IT WAS GIVING HIM GAS PAIN. NOTABLE GAS FELT AND HEARD IN UPPER ABDOMEN AND BREATHS WITH HIS BELLY. EDUCATED ON PROPER BREATHING BUT NEEDS FREQUENT REMINDERS. RIB PAIN ALSO MAKING TAKING DEEP BREATHS HARD SO KEEPING UP WITH PRN OXY SEEMS TO HELP WITH THIS A BIT. VSS. NSR IN THE 80'S. IV ABX INFUSED PER ORDER. TOLERATING SOFT DIET WITHOUT ISSUE. VOIDING FREQUENTLY PER URINAL. BEDREST UNTIL O2 DEMANDS DOWN. WILL CONTINUE PLAN OF CARE UNTIL REPORT GIVEN TO DAYSHIFT RN.
--- NOTE | 2021-05-31 07:11 | NUR ---
Pt appears to be sleeping soundly, HOB elevated 30 degrees, Spo2 98% while wearing AIrVo. Respirations even, unlabored, 20/min gentle snoring. Normal sinus rhythm noted on room monitor, 88 bpm. Bedside report received from MARLINE Tyler.
--- NOTE | 2021-05-31 10:23 | NUR ---
Attempted to use venti mask, but pt stated that he felt like he was suffocating. Did not tolerate, and after taking oral medications required AirVo and 100% non rebreather mask for 2 minutes to recover spo2 from 77 to 95%. He states he does not want the Ventimask; prefers the Airvo, which he is on now, without the NRB, and spo2 is 92% with AirVo settings at 40l/min and 58% fio2. the pt is wearing the AirVo in his mouth, which he states is better since he breathes through his mouth, not his nose. RR is 37 breaths/minute. HOB 30 degrees. PT is watching TV. Reports anxiety and pain 04/08. He was medicated for pain; atarax was given 4 hours ago, and is ordered PRN q 6. Will re-evaluate his pain and anxiety after medication has been given adequate time for effect.
--- NOTE | 2021-05-31 11:13 | NUR ---
The pt is now apparently sleeping, wearing the AIrVo with mouth delivery. Respirations are even, unlabored, 18 per minute, and spo2 is 92%. Normal sinus rhythm 98 bpm noted on bedside ekg monitoring.
--- NOTE | 2021-05-31 12:22 | NUR ---
Pt is sleeping, RR 20/minute, spo2 94% still on AirVo no changes to previous settings.
--- NOTE | 2021-05-31 14:15 | NUR ---
Pt woke up after taking a long nap, during which he had no hypoxia on continuous oximetery. Medicated pre-emptively for anxiety when he woke up. Mild anxiety noted. Pt was able to take his oral medications and is now eating lunch without any hypoxemia while on AirVo.
--- NOTE | 2021-05-31 15:49 | NUR ---
The pt has been eating a yogurt, talking to me while lying in bed. His only complaint was falling asleep and missing a TV show and feeling too warm with the afternoon sun coming in through the window. Extra blanket was removed, and snacks provided. Wearing AirVo 40 l/min and 58% fio2, unchanged all day, no hypoxia while at rest during above mentioned activity. No anxiety noted at this time. NO c/o pain at this time.
--- NOTE | 2021-05-31 22:32 | NUR ---
UPDATE CALL PLACED TO DR. GONSALVES ABOUT PATIENT'S CONTINUED "GAS" PAIN. PT WAS GIVEN PO SIMETHICONE AND DENIES RELIEF OF GAS. PATIENT GETS ANXIOUS ABOUT THE PAIN AND DESATS INTO 70'S. XRAY ORDERED TO RULE OUT ILEUS OR OBSTRUCTION WELL ORDER TO KEEP PATIENT NPO EXCEPT FOR MEDICATIONS UNTIL MORNING. WILL CONTINUE TO MONITOR.
--- NOTE | 2021-06-01 06:43 | NUR ---
SHIFT SUMMARY PATIENT IS A&OX3, FORGETFUL AT TIMES. NONCOMPLIANT AND ARGUMENTATIVE WITH CARE. PATIENT MEDICATED FOR PAIN AND ANXIETY DURING THIS SHIFT. PATIENT GETS ANXIOUS AND DESATS LOW 70% WITH INCREASED WORK OF BREATHING AND INCREASED RESP RATE. THE PATIENT REMOVES THE AIRVO AND WILL MOVE IT BETWEEN HIS NOSE AND MOUTH FOR RECOVERY. HE IS CURRENTLY ON NONREBREATHER MASK AT 15L WITH OXYGEN SATURATION ABOVE 90%. EDUCATED THROUGHOUT THE NIGHT ABOUT PROPER BREATHING TECHNIQUES. RIGHT AC IV HAS FLUIDS RUNNING TKO. PATIENT IS USING URINAL IN THE BED. NO OTHER SIGNIFICANT CHANGES.
[2021-06-01 07:26] LABS: BASOPHILS ABSOLUTE AUTO 0.02 K/mm3 (0.00-0.23); BASOPHILS PERCENT AUTO 0 % (0-2); EOSINOPHILS ABSOLUTE AUTO 0.39 K/mm3 (0.00-0.68); EOSINOPHILS PERCENT AUTO 3 % (0-6); Hematocrit 23.8 % (37.0-53.0); Hemoglobin 8.1 g/dL (13.5-17.5); IMMATURE GRAN ABSOLUTE AUTO 0.46 K/mm3 (0.00-0.10); IMMATURE GRAN PERCENT AUTO 3 % (0-1); LYMPHOCYTES ABSOLUTE AUTO 3.16 K/mm3 (0.84-5.20); LYMPHOCYTES PERCENT AUTO 23 % (21-46); MONOCYTES ABSOLUTE AUTO 1.32 K/mm3 (0.16-1.47); MONOCYTES PERCENT AUTO 9 % (4-13); Mean Corpuscular HGB 31.4 pg (26.0-34.0); Mean Corpuscular Volume 92 fL (80-100); Mean Platelet Volume 8.1 fL (9.1-12.4); NEUTROPHILS ABSOLUTE AUTO 8.63 K/mm3 (1.96-9.15); NEUTROPHILS PERCENT AUTO 62 % (41-73); NRBC ABSOLUTE 0.02 K/mm3 (0.00-0.02); NRBC Auto 0.1 /100 WBC (0.0-0.2); Platelet Count 789 K/mm3 (150-400); RDW Coefficient Variation 13.4 % (11.7-14.2); RDW Standard Deviation 45.1 fL (35.1-46.3); Red Blood Cell Count 2.58 M/mm3 (4.30-5.90); White Blood Cell Count 13.98 K/mm3 (4.00-11.30)
[2021-06-01 07:44] LABS: Anion Gap 4 mmol/L (6-16); Blood Urea Nitrogen 19 mg/dL (8-24); Bun/Creatinine Ratio 36.1 (12.0-20.0); CO2, Blood 30 mmol/L (21-32); Calcium, Blood 8.1 mg/dL (8.5-10.1); Chloride, Blood 103 mmol/L (98-108); Creatinine, Blood 0.53 mg/dL (0.60-1.20); Glomerular Filtration Rate >60 (60-); Glucose, Blood 96 mg/dL (70-99); Potassium, Blood 4.1 mmol/L (3.5-5.5); Sodium, Blood 137 mmol/L (136-145); Vancomycin, Trough 8.3 ug/mL (5.0-10.0)
--- NOTE | 2021-06-01 07:57 | NUR ---
AM NOTE PT APPEARS TO BE SLEEPING. AWAKES EASILY TO VERBAL STIMULI, ANSWERNING QUESTIONS APPROPRIATLY. REFUSING PARTS OF ASSESSMENT, STATES HE IS SLEEPING. PT ABLE TO ASSIST MOVING SELF IN BED. PT DENIES PAIN, CHEST PAIN, NAUSEA, AND DIZZINESS. PT BREATHING UNEVEN, LABORED, ON 15L VIA NRB, PT LYING IN BED, BREATHING THROUGH MOUTH. PT SINUS IN 90'S THIS AM, BP STABLE. ABD MILD DISTENTION, SOFT, NONTENDER; PT REPORTS GAS PAINS AT TIMES. OTHER VSS. WILL CONTINUE TO MONITOR.
--- NOTE | 2021-06-01 11:53 | NUR ---
DR MILLER AT BEDSIDE THIS AM, PLACED PT BACK ON AIRVO AT 30L 70% FIO2. PT APPEARS TO BE TOLERATING IT WELL, SPO2 >90% RESP RATE 18-22; RIGHT SIDE OF CHEST CONTINUES TO RISE HIGHER THAN LEFT SIDE. NO OTHER ACUTE CHANGES NOTED. WILL CONTINUE TO MONITOR.
--- NOTE | 2021-06-01 17:42 | NUR ---
SHIFT SUMMARY PT TITRATED TO 5L O2 VIA NRB. PT REFUSING TO WEAR AIRVO, STATING "I CANT BREATH THROUGH MY NOSE, ALL THE AIR IS GOING TO MY STOMACH." VSS. NO OTHER ACUTE CHANGES NOTED. WILL CONTINUE TO MONITOR UNITL REPORT GIVEN TO ONCOMING RN.
--- NOTE | 2021-06-01 19:27 | NUR ---
PT HAD COUGING EPISODE, DESATURATED TO 80% SPO2, TITRATED TO 15L NRB; NOTIFIED DR MILLER. REPORT GIVEN TO ONCOMING RN.
--- NOTE | 2021-06-02 06:11 | NUR ---
SHIFT SUMMARY PATIENT A&O BUT FORGETFUL AT TIMES. RESTING IN BED WITH NONREBREATHER IN PLACE AT 9L. OXYGEN SATURATION ABOVE 90%. PATIENT IS SWITCHING BETWEEN AIRVO AND NONREBREATHER WITH ASSISTANCE OF RT AND NURSE. AIRVO SETTINGS PER DR. MILLER AT 35L, 50% FIO2. PATIENT HAS BEEN SLEEPING THE MAJORITY OF SHIFT BUT IS EASILY ROUSABLE FOR MEDICATIONS OR ROUNDING. PATIENT MEDICATED FOR GAS AND PAIN PER EMAR. NO OTHER SIGNIFICANT CHANGES THIS SHIFT.
--- NOTE | 2021-06-02 09:56 | NUR ---
AM NOTE ASSUMED CARE OF PATIENT AT APPROX 0700. PT ALERT, ORINETED x3, ANXIOUS AND IRRITABLE. PT ON 8L VIA NRB, RESP RATE 20-24; LS DIM TO BASES. PLACED ON AIRVO AND TITRATED FOR ACTIVITY AND EATING, REPLACED NRB AFTER MEALS. WHEN PT HAS COUGHING EPISODE, HE DESATS TO 70-80'S SLOW RECOVERY. PT REPROTS RIB, BACK AND NECK PAIN 04/08 MEDCIATED WITH SCHEDULE PAIN MANAGEMENT. PT DENIES CHEST PAIN, NAUSEA, DIZZINESS AND NUMB/TINGLING. PT REPORTS "GAS" PAIN, BS HYPERACTIVE, TENDER ON PALPITATION. BP SOFT, STABLE. PER REPAIRER SINUS 80'S. OTHER VSS. NO OTHER ACUTE CHANGES NOTED. WILL CONTINUE TO MONITOR.
[2021-06-02 12:08] LABS: BASOPHILS ABSOLUTE AUTO 0.04 K/mm3 (0.00-0.23); BASOPHILS PERCENT AUTO 0 % (0-2); EOSINOPHILS ABSOLUTE AUTO 0.62 K/mm3 (0.00-0.68); EOSINOPHILS PERCENT AUTO 5 % (0-6); Hematocrit 21.9 % (37.0-53.0); Hemoglobin 7.4 g/dL (13.5-17.5); IMMATURE GRAN ABSOLUTE AUTO 0.45 K/mm3 (0.00-0.10); IMMATURE GRAN PERCENT AUTO 4 % (0-1); LYMPHOCYTES PERCENT AUTO 18 % (21-46); MONOCYTES ABSOLUTE AUTO 1.14 K/mm3 (0.16-1.47); MONOCYTES PERCENT AUTO 9 % (4-13); Mean Corpuscular HGB 31.5 pg (26.0-34.0); Mean Corpuscular HGB Conc 33.8 g/dL (31.5-36.5); Mean Corpuscular Volume 93 fL (80-100); NEUTROPHILS ABSOLUTE AUTO 8.29 K/mm3 (1.96-9.15); NEUTROPHILS PERCENT AUTO 65 % (41-73); Platelet Count 780 K/mm3 (150-400); RDW Coefficient Variation 13.5 % (11.7-14.2); RDW Standard Deviation 45.7 fL (35.1-46.3); Red Blood Cell Count 2.35 M/mm3 (4.30-5.90); White Blood Cell Count 12.84 K/mm3 (4.00-11.30)
[2021-06-02 12:34] LABS: Alanine Aminotransfer (ALT/SGP 36 U/L (12-78); Albumin, Blood 1.6 g/dL (3.4-5.0); Albumin/Globulin Ratio 0.4 (0.8-1.8); Alk Phos 104 U/L (50-136); Anion Gap 4 mmol/L (6-16); Aspartate Aminotrans (AST/SGOT 20 U/L (12-37); Bilirubin, Total 0.2 mg/dL (0.1-1.0); Blood Urea Nitrogen 14 mg/dL (8-24); Bun/Creatinine Ratio 25.3 (12.0-20.0); CO2, Blood 32 mmol/L (21-32); Calcium, Blood 8.2 mg/dL (8.5-10.1); Chloride, Blood 100 mmol/L (98-108); Creatinine, Blood 0.55 mg/dL (0.60-1.20); Globulin, Blood 4.2 g/dL (2.2-4.0); Glomerular Filtration Rate >60 (60-); Glucose, Blood 104 mg/dL (70-99); Potassium, Blood 4.3 mmol/L (3.5-5.5); Sodium, Blood 136 mmol/L (136-145); Total Protein, Blood 5.8 g/dL (6.4-8.2)
[2021-06-02 16:05] LABS: Percent Saturation 11.3 % (20.0-50.0)
[2021-06-02 17:27] LABS: Creatinine, Blood 0.53 mg/dL (0.60-1.20); Vancomycin, Trough 17.5 ug/mL (5.0-10.0)
[2021-06-03 03:32] LABS: BASOPHILS ABSOLUTE AUTO 0.04 K/mm3 (0.00-0.23); BASOPHILS PERCENT AUTO 0 % (0-2); EOSINOPHILS ABSOLUTE AUTO 0.57 K/mm3 (0.00-0.68); EOSINOPHILS PERCENT AUTO 4 % (0-6); Hematocrit 22.8 % (37.0-53.0); Hemoglobin 7.5 g/dL (13.5-17.5); IMMATURE GRAN ABSOLUTE AUTO 0.41 K/mm3 (0.00-0.10); IMMATURE GRAN PERCENT AUTO 3 % (0-1); LYMPHOCYTES ABSOLUTE AUTO 2.39 K/mm3 (0.84-5.20); LYMPHOCYTES PERCENT AUTO 16 % (21-46); MONOCYTES ABSOLUTE AUTO 1.36 K/mm3 (0.16-1.47); MONOCYTES PERCENT AUTO 9 % (4-13); Mean Corpuscular HGB 30.9 pg (26.0-34.0); Mean Corpuscular HGB Conc 32.9 g/dL (31.5-36.5); Mean Corpuscular Volume 94 fL (80-100); NEUTROPHILS ABSOLUTE AUTO 9.78 K/mm3 (1.96-9.15); NEUTROPHILS PERCENT AUTO 67 % (41-73); Platelet Count 819 K/mm3 (150-400); RDW Coefficient Variation 13.4 % (11.7-14.2); RDW Standard Deviation 45.7 fL (35.1-46.3); Red Blood Cell Count 2.43 M/mm3 (4.30-5.90); White Blood Cell Count 14.55 K/mm3 (4.00-11.30)
[2021-06-03 03:49] LABS: Alanine Aminotransfer (ALT/SGP 25 U/L (12-78); Albumin, Blood 1.6 g/dL (3.4-5.0); Albumin/Globulin Ratio 0.4 (0.8-1.8); Alk Phos 102 U/L (50-136); Anion Gap 2 mmol/L (6-16); Aspartate Aminotrans (AST/SGOT 16 U/L (12-37); Bilirubin, Total 0.6 mg/dL (0.1-1.0); Blood Urea Nitrogen 10 mg/dL (8-24); Bun/Creatinine Ratio 18.1 (12.0-20.0); CO2, Blood 33 mmol/L (21-32); Calcium, Blood 8.2 mg/dL (8.5-10.1); Chloride, Blood 98 mmol/L (98-108); Creatinine, Blood 0.55 mg/dL (0.60-1.20); Globulin, Blood 4.5 g/dL (2.2-4.0); Glomerular Filtration Rate >60 (60-); Glucose, Blood 90 mg/dL (70-99); Potassium, Blood 4.6 mmol/L (3.5-5.5); Sodium, Blood 133 mmol/L (136-145); Total Protein, Blood 6.1 g/dL (6.4-8.2)
--- NOTE | 2021-06-03 05:22 | NUR ---
NO ACUTE CHANGES NOTED
--- NOTE | 2021-06-03 08:10 | NUR ---
The pt is alert, oriented x 3, but is also having some confusion about the TV and needing to delete some numbers and letters off of the screen; he states he doesn't know what he needs to do but that something needs to be deleted. He is rambling a bit on this topic and confesses to some confusion. Upon assessment, pt wearing AirVo at 30 l/min, 85% fio2, spo2 99% while sleeping, wearing prongs in his nares. When awake, Spo2 drops to 93 while talking/eating. When he is anxious and acting impulsively and quickly, spo2 dropped to 75%. He was attempting to clean his mouth out, expectorate sputum, reposition himself in bed, and was also suddenly hit with the urge to use the urinal in bed. Airvo placed in his mouth as the pt was breathing through his mouth attempting to recover;100% NRB mask applied over the airVo and within 2-3 minutes spo2 was recovered to 93% and pt appeared to be more comfortable, and he stated he felt like it was better and he wanted to eat breakfast. His respirations are 25/minute, and he vocalizes during expiration a lot of the time. However, he is sitting up eating breakfast slowly (this was emphasized to him to eat slowly and take breaks for breathing) in bed, and spo2 93%, RR 32/min. He is c/o having gas pains.
--- NOTE | 2021-06-03 08:31 | NUR ---
Dr. Bond rounded on pt. Will asked for something for anxiety; given Atarax at this time. He is continuing to slowly eat his breakfast.
--- NOTE | 2021-06-03 10:57 | NUR ---
Call to Pt's mom, Maurisio, to update her on pt condition and explain the plan of treatment as it is today.
--- NOTE | 2021-06-03 10:59 | NUR ---
ASSUMPTION OF CARE NOTE PT ALERT TO SELF, PERSON AND PLACE. WILL BE CONFUSED AT TIMES AND STATE THAT HE NEEDS TO GET RID OF COMPUTER AND CORDS EVEN THOUGH THERE ARE NO DEVISES NEAR HIM. PT NOW ON NON-REBREATHER 15L/MIN, SPO2 >90. WHEN PATIENT BECOMES ANXIOUS HE WILL DESATURATE TO UPPER 70'S-80'S BUT RECOVERS QUICKLY. CALM PRESENCE AND REDIRECTING ATTENTION WILL HELP CALM PT DOWN. CALL LIGHT IN REACH. WILL CONTINUE TO MONITOR.
--- NOTE | 2021-06-03 11:28 | NUR ---
pt to CT scan via cart
--- NOTE | 2021-06-03 12:01 | NUR ---
CARE NOTE PT BACK TO ROOM FROM CT APPROX. 11:45 AND IS NOW RESTING. SPO2 93% VIA AIRVO 30L/MIN AT 80%FIO2.
--- NOTE | 2021-06-03 14:15 | NUR ---
pt continues to easily and frequently have hypoxic episodes, to 75% Spo2 when he has occasional coughing spells or when he attempts to do a number of things one after the other without a break (take medications, blow his nose, cough, and then use the urinal) in between the activity. He has been urged to take things one at a time with breaks in between, but his level of anxiety seems to inhibit him remembering to follow the recommendations. He is irritable and becomes upset when he loses his breath, and then the conversation that he is attempting to have exacerbates his hypoxia. He recovers with reassurance without the NRB for recovery this afternoon, within a couple of minutes. At this time, he is given bowel care, simethicone and TUMS for c/o gas and no BM for 4 days.
--- NOTE | 2021-06-03 14:45 | NUR ---
CARE NOTE PT HAS BEEN HAVING PATTERNS OF REST WITH ANXIETY. ANXIETY WILL START WHEN PATIENT INCREASES ACTIVITY AND THEN HE WILL DESATURATE TO UPPER 70'S-80'S. PT RECOVERS QUICKLY W/ SPO2 RETURNING >90%. THIS NURSE SPOKE WITH PATIENT ABOUT IMPORTANCE OF TAKING MOVEMENTS SLOW AND FOCUSING ON BREATHING. PT NOTED MOUTH BREATHER. THIS NURSE ALSO SPOKE WITH PATIENT ABOUT OTHER INTERVENTIONS TO REDUCE ANXIETY SUCH ZOOM CONFERANCE CALL WITH FAMILY OR TALKING WITH SUPERVISOR ASBESTOS REMOVAL; PT DENIED NEED FOR EITHER OF THOSE INTERVENTIONS. PT NOW APPEARS TO BE SLEEPING, CALL LIGHT IN REACH.
--- NOTE | 2021-06-03 17:22 | NUR ---
SHIFT SUMMARY PT ALERT TO SELF, PLACE, FAMILY, AND PERSON BUT WILL DEMONSTRATE CONFUSION ABOUT CURRENT ILLNESS. PT HAS BEEN ANXIOUS ON AND OFF T/O SHIFT,MEDICATED PER EMAR. NOW PT APPEARS TO BE SLEEPING. SPO2 97% VIA AIRVO, 40L/MIN @ 84%FIO2. EPISODES OF ANXIETY CAUSE PATIENT TO DESATURATE TO UPPER 70'S-80'S SPO2, BUT PATIENT WILL RECOVER QUICKLY 1-2 MIN. SBP RANGED 126-148, HR SR/ST PER TELE. LEFT POWERGLIDE INFUSING VANCOMYCIN PER EMAR. RIGHT PICC LINE SALINE LOCKED. PHYSICAL THERAPY WAS ABLE TO SEE PT TODAY AND WORK WITH PATIENT WHILE IN BED. NO OTHER ACTUTE CHANGES NOTED. WILL CONTINUE TO MONITOR UNTIL REPORT GIVEN.
--- NOTE | 2021-06-04 04:37 | NUR ---
PATIENT SLEPT THROUGOUT THE EVENING ONLY REQUESTING NRB X 2 BUT WAS NOT NECESSARY TO RECOVER FROM DESATURATION, REMAINED ON AIRVO HFNC 40L/85% FIO2 SATS 94-99%, ATTEMPTED TO HAVE CHICKEN BROTH THIS EVENING STARTED HAVING ANXIETY, PEPTO BISMO GIVEN WITH SOME RELIEF FROM GASTRO DISCOMFORT.
--- NOTE | 2021-06-04 08:05 | NUR ---
Pt woke up, said that his oxygen delivery nasal cannula was sitting beside him, and he denied taking it off, got angry at noc RN for suggesting that he might have taken it off. He is also angry that his NRB for rescue was not beside him where he wanted it for his PRN use. It was hanging off the side of the bed near his right shoulder. It was put within his reach. he is presently sitting up, eating breakfast, many complaints about the food and making disparaging remarks about staff. He requested Cheerios sugar and milk, which were provided to him. He c/o his breathing feeling tight in his chest. Given Atarax PRN at this time, and suggested a breathing tx might help, but he said that the breathing tx "don't do a thing". Asking if the doctor is coming in to see him today, which I said yes, he will, they round at least once every day.
[2021-06-04 08:51] LABS: Vancomycin, Trough 21.8 ug/mL (5.0-10.0)
--- NOTE | 2021-06-04 12:47 | NUR ---
Pt seems to be much more at ease at this time. STates that his conversation with the physical therapist Jhony really put him at ease. The pt's anxiety has been eased by being able to see the spo2 monitor so that he knows when to use the NRB for recovery, and when his oxygen level is good. Pt is resting with eyes closed, and occasionally is having conversation with me. NO use of accessory muscles at this time, does have suprasternal retractions and right chest rise is higher than the left. Pt states that peptobismol and pain medications are helping him today.
--- NOTE | 2021-06-04 18:04 | NUR ---
Will has been alert, oriented and not exhibiting confusion as he had yesterday afternoon. He has had anxiety, but it seems to perhaps be alleviated somewhat by atarax administration, and he also said that being able to watch the spo2 continuous monitor in the room has helped. He is able to know when to use the pursed lip breathing technique, or AirVo in his mouth when he is mouth breathing during recovery and too dyspneic to pursedlip breathe, or if his breathing continues to be difficult, he uses the NRB mask over the AirVo for recovery.
[2021-06-05 05:30] LABS: Hematocrit 22.1 % (37.0-53.0); Hemoglobin 7.4 g/dL (13.5-17.5); Mean Corpuscular HGB 30.8 pg (26.0-34.0); Mean Corpuscular HGB Conc 33.5 g/dL (31.5-36.5); Mean Corpuscular Volume 92 fL (80-100); Mean Platelet Volume 8.2 fL (9.1-12.4); Platelet Count 690 K/mm3 (150-400); RDW Coefficient Variation 13.3 % (11.7-14.2); RDW Standard Deviation 44.6 fL (35.1-46.3); White Blood Cell Count 20.93 K/mm3 (4.00-11.30)
[2021-06-05 06:08] LABS: Anion Gap 4 mmol/L (6-16); Blood Urea Nitrogen 12 mg/dL (8-24); Bun/Creatinine Ratio 21.4 (12.0-20.0); CO2, Blood 31 mmol/L (21-32); Calcium, Blood 8.5 mg/dL (8.5-10.1); Chloride, Blood 96 mmol/L (98-108); Creatinine, Blood 0.56 mg/dL (0.60-1.20); Glomerular Filtration Rate >60 (60-); Glucose, Blood 116 mg/dL (70-99); Potassium, Blood 4.8 mmol/L (3.5-5.5); Sodium, Blood 131 mmol/L (136-145)
--- NOTE | 2021-06-05 07:46 | NUR ---
SHIFT SUMMARY PATIENT IS RESTING COMFORTABLE. BED IS IN LOW POSITION. CALL LIGHT IS REACH. PATIENT IS ON AIRVO 55L AT 87% FIO2 BUT HIS OXYGEN DEMAND INCREASED 60L AT 85-91% FIO2. PATIENT GETS VERY ANXIOUS WITH VERY LITTLE ACTIVITY. HE IS WAS QUICK TO RECOVER AT START OF SHIFT BUT AT ABOUT 0200 HE TOOK A WHILE TO RECOVER. TRIED TO GIVE HIM IS MEDICATIONS BUT PATIENT TENDS TO GET VERY DEFENSIVE AND ARGUMENTATIVE. VITALS WERE STABLE EXCEPT OXYGEN LEVELS. WORKING WITH PATIENT TO REMAIN CALM AND TO KEEP HIS O2 LEVELS HIGH. PATIENT IS ON BEDREST DUE TO O2 DEMAND INCREASE WHEN WE GET HIM UP. PATIENT SEEMS TO BE GETTING BETTER BUT HIS ANXIETY IS REALLY PREVENTING HIM FROM IMPROVING. WILL CONTINUE TO MONITOR. REPORT GIVEN TO DAY SHIFT RN.
[2021-06-05 10:07] LABS: Vancomycin, Trough 11.5 ug/mL (5.0-10.0)
--- NOTE | 2021-06-05 14:18 | NUR ---
transferred to icu 13 per md order for continued deterioration in o2 levels. report given at bedside.
--- NOTE | 2021-06-05 15:30 | NUR ---
Transfer from PCU Pt transfered from PCU to ICU via bed. Pt is anxious, elevated RR, and denies knowing location at this time. On BIPAP 12/06, FIO2 100%. Pulling mask off frequently per PCU nurse and desaturing. Spo2 88-87%. HR 120's. Dr. Azul at bedside and orders reieved for EKG and to start patient on Precedex via PICC. Pt has PowerGlide to JAMES. PICC to JEIMY. Able to help with turns. Appears anxious and agitated frequently, attempting to pull mask off saying, "I cannot breath." Verbal redirection met with little success.
[2021-06-05 15:34] LABS: C-REACTIVE PROTEIN, EXT RANGE >19.000 mg/dL (0.000-0.300); Troponin I <0.015 ng/mL (0.000-0.040)
--- NOTE | 2021-06-05 18:00 | NUR ---
Shift Summary Bipap settings: 13/08, FIO2 100%. Precedex 1.4 mcg/kg/hr and PRN ativan for anxiety. Pt very anxious when awake, pulling off BIPAP and requires frequent verbal redirection. A/O to location, following commands and continues to state feeling SOB. Pt hypotensive. New orders recieved from Dr. Azul, to give pt 1 L NS bolus and after that NS @ 100 ML/HR. RR 30'S. HR 90-110's. MAP > 65. Lev from [facility] stopped by to discuss if family was contacted, made aware that family has not been called yet. Will report to oncoming shift.
--- NOTE | 2021-06-05 20:00 | NUR ---
PT IN BED ON BIPAP, 13/08, 100% FIO2, SITTING UPRIGHT IN BED, TACHYPNEIC, SATS 90%, HEART RATE 90S. LUNG SOUNDS RIGHT LUNG, COURSE, RUB, RHONCHI AND LEFT LUNG WITH DIMINISHED SOUNDS. ABD SOFT, NON TENDER, ACTIVE BOWEL TONES, INCONT OF URINE, CONDOM CATH PLACED FOR COMFORT. PT TALKING WITH INCOMPREHENSIBLE WORDS. PT REASSURED, ENCOURAGED TO BREATHE SLOWER. RESP.THERAPY CALLED IN TO ASSIST WITH BIPAP SETTINGS, SATS DECREASING. INCREASED UP TO @ 2014.
--- NOTE | 2021-06-05 22:30 | NUR ---
PT CONTINUES TO DESAT, RESP THERAPY ADJUSTING SETTINGS, CONTINUE TO STAY IN THE HI 70S/LOW 80S. CALL IN TO . CAME TO SEE PT AND DECISION TO INTUBATE. PT GIVEN 10MG ETOMIDATE, 100MG SUCCINOCHOLINE, INTUBATED WITH 8.0 ETT @ 2308. PT STARTED ON PROPOFOL AND LEVOPHED GTT PER ORDER. BOLUS GIVEN, PT XRAY AND NOTED TO HAVE RIGHT PNEUMOTHORAX, CALLED AND RETURNS TO PLACE RIGHT ANTERIOR CHEST TUBE. FAMILY CALLED.
--- NOTE | 2021-06-06 00:30 | NUR ---
PT'S MOM AND STEP FATHER HERE, EXPLAINING WHAT HAS TRANSPIRED. MOM STATES SHE WAS UNAWARE THAT HE WAS MOVED TO THE ICU. TEARFUL, BY HER SIDE.
--- NOTE | 2021-06-06 01:00 | NUR ---
PT HAD A PERIOD OF DESATURATION AND HEART RATE DECLINE, LISTENED, DID NOT HEAR ANY HEART TONES, PT ONLY BREATHING WITH VENTILATOR. CHARGE NURSE CALLED IN, SHE DID NOT HEAR HEART TONES EITHER, THEN PT BEGAN BREATHING AGAIN AND HEART RATE RETURNED.
[2021-06-06 04:30] LABS: Hematocrit 23.1 % (37.0-53.0); Hemoglobin 7.1 g/dL (13.5-17.5); Mean Corpuscular HGB Conc 30.7 g/dL (31.5-36.5); Mean Platelet Volume 8.3 fL (9.1-12.4); NRBC ABSOLUTE 0.08 K/mm3 (0.00-0.02); NRBC Auto 0.3 /100 WBC (0.0-0.2); Platelet Count 502 K/mm3 (150-400); RDW Coefficient Variation 13.7 % (11.7-14.2); RDW Standard Deviation 51.9 fL (35.1-46.3); Red Blood Cell Count 2.22 M/mm3 (4.30-5.90)
[2021-06-06 04:31] LABS: Mean Corpuscular Volume 104 fL (80-100)
[2021-06-06 04:49] LABS: Bun/Creatinine Ratio 16.5 (12.0-20.0); Calcium, Blood 7.2 mg/dL (8.5-10.1); Creatinine, Blood 1.39 mg/dL (0.60-1.20)
[2021-06-06 05:08] LABS: Potassium, Blood 7.4 mmol/L (3.5-5.5)
--- NOTE | 2021-06-06 05:12 | NUR ---
IN ROOM TALKING WITH FAMILY, HEART RATE BEGAN HOVERING IN THE 40'S, NOTED THAT PT WAS NO LONGER BREATHING OUTSIDE OF THE VENTILATOR, LISTENED TO HEART TONES, NOTHING HEARD, EXECUTIVE CHEF ASSISTANT HARI ALSO AUSCULTATED, NO HEART TONES HEARD. PRONOUNCED AT 0429, MOM AND STEP DAD AT THE BEDSIDE. PT CLEANED UP AND TUBES REMOVED, FAMILY BROUGHT BACK IN TO BE WITH PATIENT. PT TO BE TAKEN TO [facility] PER MOM'S REQUEST.
[2021-06-06 09:09] LABS: HIV SCREEN 4TH GENERATION WRFX Non Reactive (Non Reactive)
== END 2021-06-06 04:29 | DRG 208 ==
LOC: ER 15:20 → MEDS 17:59 → ICUW 17:59 → PCU 17:59 → SURS 17:59 → MEDS 05-28 14:22 → PCU 05-30 18:45 → ICUW 06-05 14:11
PROVIDERS: Internal Medicine; Internal Medicine Critical Care Medicine; Internal Medicine Infectious Disease; Student in an Organized Health Care Education/Training Program; ADMIT Internal Medicine
PROC: 0BH18EZ Insertion of Endotracheal Airway into Trachea, Via Natural or Artificial Opening Endoscopic (ICD-10-PCS; principal; 2021-05-25)
PROC: 0W9930Z Drainage of Right Pleural Cavity with Drainage Device, Percutaneous Approach (ICD-10-PCS; 2021-05-25)
PROC: 0BH18EZ Insertion of Endotracheal Airway into Trachea, Via Natural or Artificial Opening Endoscopic (ICD-10-PCS; 2021-05-25)
PROC: 5A12012 Performance of Cardiac Output, Single, Manual (ICD-10-PCS; 2021-05-25)
PROC: 8E0ZXY6 Isolation (ICD-10-PCS; 2021-05-25)
PROC: 3E033XZ Introduction of Vasopressor into Peripheral Vein, Percutaneous Approach (ICD-10-PCS; 2021-05-25)
PROC: 5A09557 Assistance with Respiratory Ventilation, Greater than 96 Consecutive Hours, Continuous Positive Airway Pressure (ICD-10-PCS; 2021-05-25)
PROC: 5A0955A Assistance with Respiratory Ventilation, Greater than 96 Consecutive Hours, High Flow/Velocity Cannula (ICD-10-PCS; 2021-05-25)
PROC: 5A1935Z Respiratory Ventilation, Less than 24 Consecutive Hours (ICD-10-PCS; 2021-06-05)
PROC: 02H633Z Insertion of Infusion Device into Right Atrium, Percutaneous Approach (ICD-10-PCS; 2021-06-05)
DX: U07.1 COVID-19 (principal); J85.1 Abscess of lung with pneumonia; J12.82 Pneumonia due to coronavirus disease 2019; J96.21 Acute and chronic respiratory failure with hypoxia; G93.41 Metabolic encephalopathy; Z51.5 Encounter for palliative care; I10 Essential (primary) hypertension; M48.02 Spinal stenosis, cervical region; F15.10 Other stimulant abuse, uncomplicated; F17.210 Nicotine dependence, cigarettes, uncomplicated; R77.8 Other specified abnormalities of plasma proteins; D64.9 Anemia, unspecified; K21.9 Gastro-esophageal reflux disease without esophagitis; Z88.2 Allergy status to sulfonamides; Z79.82 Long term (current) use of aspirin; Z79.899 Other long term (current) drug therapy; Z78.1 Physical restraint status
CPT/HCPCS: 36415; 36569; 71045; 71046; 71260; 74018; 74177; 80048; 80053; 80202; 82565; 82728; 82803; 83540; 83550; 83605; 83880; 84145; 84484; 85025; 85027; 85379; 85520; 86140; 86403; 87040; 87070; 87102; 87106; 87205; 87305; 87389; 87449; 93005; 93010; 93306; 94640; 94660; 94760; 94762; 96365; 96375; 97110; 97161; 97530; 99285-25; A9270; C1751; J0295; J0330; J0456; J0696; J1650; J2060; J2185; J2270; J2405; J2704; J2920; J3370; J3465; J3475; J7030; J7040; J7050; J7060; J7512; Q9967